=== PATIENT | male | born 1965 | race Caucasian/White ===

== ENCOUNTER 2024-06-30 18:00 | Inpatient (IN) | payer OTHER, SELFPAY ==
[2024-06-30 17:22] VITALS: BP 136/73; PULSE 103; RESP 22; TEMP 37.4; O2SAT 94; BMI 18.1
--- NOTE | 2024-06-30 18:33 | NURSING ---
Attempted to call spouse to ask admission questions, no answer.
--- NOTE | 2024-06-30 18:44 | HP.PCM_ITS ---
HPI - General General Date of Admission: 06/30/24 Date of Service: 06/30/24 Chief Complaint: Here for rehabilitation. HPI Narrative ROSA ELENA GARG, is a 59 Male who presents with followin06/13/2024 Admit [facility]. Fall, low back pain, woke up on bathroom floor. Hit head, neck, felt weak, usually walks with walker. Depressed, weak, eating less. Sodium 127, AST 200, ALT 81. CT head chronic small vessel ischemia, CXR negative. EKG sinus tachycardia. Tongue cancer 2012, history of tracheostomy, history of PEG, both removed. 06/17/2024 Consult Psychiatry, Sertraline 50mg daily for depression. IV antibiotics, BUMBOATER, modified diet, for right lower lobe aspiration pneumonia. PT/OT SNF. Patient declined PEG, DNRCCA, No intubation. 06/26/2024 Transfuse PRBC for anemia, Eliquis held. Patient/ declined further testing, requested SNF to get stronger. 06/27/2024 Syncope, during BM. PEG, Linezolid, nebs, NPO, aspiration pneumonia. Elevated LFT's, resolved. No surgery for cholelithiasis. 06/30/2024 General surgery replaced PEG tube. 06/30/2024 Admit to TCU with debility, here for rehabilitation, strengthening, prior to discharge home with . [facility] Medical History (Updated 06/30/24 @ 19:[address] Bony Marie MD) DDD (degenerative disc disease), thoracic Squamous cell carcinoma of tongue Pulmonary embolism Megaloblastic anemia DDD (degenerative disc disease), lumbar DVT (deep venous thrombosis) HTN (hypertension) History of smoking Cervical spinal stenosis Home Medications ?Medication ?Instructions ?Recorded ?Last Taken ?Type ergocalciferol (vitamin D2) 1,250 1,250 mcg feeding tube QWEEK 06/30/24 06/30/24 History mcg (50,000 unit) capsule supplement ferrous sulfate 300 mg (60 mg 300 mg feeding tube DAILY 06/30/24 06/30/24 History iron)/5 mL oral liquid supplement fluticasone propionate 50 2 spray intranasal DAILY PRN nasal 06/30/24 06/29/24 History mcg/actuation nasal congestion spray,suspension ipratropium 0.5 mg-albuterol 3 mg 3 ml inhalation TID PRN shortness 10/03/24 10/03/24 History (2.5 mg base)/3 mL nebulization of breath or wheezing soln miconazole nitrate 2 % topical 1 applic topical DAILY skin 06/30/24 06/29/24 History powder protection oxycodone 5 mg tablet 5 mg feeding tube Q6H PRN pain 06/30/24 06/29/24 History (scale score 7-10) phenol 1.4 % mucosal aerosol spray 1 spray mucous membrane Q2H PRN 06/30/24 Unknown History (Throat [place]) sore throat polyethylene glycol 3350 17 17 g PO DAILY PRN constipation 06/30/24 Unknown History gram/dose oral powder (Miralax) potassium chloride 20 mEq 20 meq PO BID supplement 06/30/24 06/30/24 History tablet,extended release(part/cryst) (Klor-Con M) pregabalin 75 mg capsule 75 mg feeding tube BID nerve pain 06/30/24 Unknown History Allergy/AdvReac Type Severity Reaction Status Date / Time No Known Allergies Allergy Verified 06/30/24 17:55 Family History (Updated 06/30/24 @ 18:[address] Bony Marie MD) Mother Hypertension Father CAD (coronary artery disease) Hypertension Parkinson disease Brother Hypertension Surgical History (Updated 06/30/24 @ 18:[address] Bony Marie MD) [place] teeth extracted History of glossectomy S/P percutaneous endoscopic gastrostomy (PEG) tube placement History of tracheostomy Social History (Updated 06/30/24 @ 18:[address] Bony Marie MD) household members: spouse Smoking Status: Former smoker alcohol intake: never substance use type: does not use ROS Constitutional Constitutional: Reports weakness; Denies chills, fever(s) or weight gain ENT HEENT: Denies headache(s), nasal congestion or nasal discharge Cardiovascular Cardiovascular: Denies chest pain or palpitations Respiratory/Chest Respiratory/Chest: Denies cough, excessive phlegm production or shortness of breath with exertion Gastrointestinal Gastrointestinal: Denies abdominal pain, nausea or vomiting Genitourinary Genitourinary: Denies dysuria Musculoskeletal Musculoskeletal: Denies joint pain or joint swelling Integumentary Integumentary: Denies rash or wounds Neurologic Neurologic: Denies focal weakness, numbness or tingling Psychiatric Psychiatric: Denies anxiety, auditory hallucinations, depression, homicidal ideation or suicidal ideation Vital Signs Vital Signs Vital Signs: 06/30/24 17:22 Temperature 99.3 F H Temperature Source Temporal Pulse Rate 103 H Respiratory Rate 22 H Blood Pressure 136/73 H Blood Pressure Mean 94 Blood Pressure Source Monitor Blood Pressure Position Semi-Fowlers Blood Pressure Location Right Arm Pulse Ox 94 Oxygen Delivery Method Nasal Cannula Oxygen Flow Rate (L/min) 2 Weight Weight: 60.555 kg Body Mass Index (BMI) 18.1 Physical Exam Const alert General Appearance: cooperative HEENT normocephalic Eyes PERRL and EOMs intact bilaterally Neck supple, no JVD and no carotid bruits Resp normal respiratory effort, normal air movement and clear to auscultation bilaterally Cardio regular rate and regular rhythm GI normal to inspection, nondistended, normoactive bowel sounds, non-tender and non-distended GI Narrative: PEG present. Extremity normal capillary refill General Extremity: Negative for edema Skin no rashes or lesions noted General Skin Exam: no breakdown Psych affect normal Appearance: appropriate Assessment & Plan Assessment/Plan (1) Debility: (2) Failure to thrive: (3) Hyponatremia: (4) Elevated liver function tests: (5) Cholelithiasis: (6) Dysphagia: (7) Aspiration pneumonia: (8) Depression: (9) Essential (primary) hypertension: (10) DVT (deep venous thrombosis): (11) Pulmonary embolism: (12) Malnutrition: (13) History of tongue cancer: PLAN: Plan 59 year old male with below past medical history hospitalized for weakness, failure to thrive, complicated by hyponatremia, depression, aspiration pneumonia, dysphagia requiring peg, admitted to TCU with debility, here for rehabilitation, strengthening, prior to discharge home with . * Debility - PT/OT. * Dysphagia - ST. * Pain - Oxycodone 5mg q6 prn. * Bowel - Miralaax 17gm daily prn. * Adult immunization - Administer pneumonia vaccine, covid vaccine, flu vaccine as appropriate. * DVT prophylaxis - Lovenox 30mg sc daily. * Vitamin D deficiency - D 1.25mg qweek. * Iron deficiency anemia - Ferrous sulfate 300mg daily. * Allergic rhinitis - Flonase 2 sprays nasal daily prn. * Shortness of breath - Duoneb 3ml tid prn. * Tinea Corporis - Nystatin powder topical bid. * Sore throat - Chloraseptic 1 spray q2h prn. * Nutrition - Pivot 1.5 50mL/hour. * Hypokalemia - KCL 20meq bid. * Neuropathy - Lyrica 75mg bid.
[2024-06-30] MEDS: Pivot 1.5 Cal 1,000 ML 50 ML GT (20:23)
[2024-06-30] MEDS: Potassium Chloride Oral Soln 20 MEQ/15 ML UDC GT (20:24)
[2024-06-30 21:15] VITALS: PULSE 107; RESP 43; O2SAT 94
--- NOTE | 2024-06-30 21:15 | NURSING ---
Spouse/patient rep (Teena) at bedside, patient unable to answer admission questions or sign admission paper work due to cognition. Spouse Teena agrees to sign paperwork and answer admission questions. Spouse reports patient confusion is not new. Patient is alert to self. Patient speech unclear, does engage in conversation at times. Spouse refuses patient lyrica, states wants medication discontinues due causes patient to be sleepy, patient states I don't want it. Spouse reports patient required new peg placement recently due to accidental removal during turn and reposition at prior hospital. Spouse states she does not want patient labs to be drawn and wants no further imaging taken. Attempts to educate on purpose of labs and imaging ineffective despite multiple attempts, spouse notified that Dr. Marie will be notified of her request. Spouse requests to spend the night with patient. Spouse reports patient was treated for aspiration pneumonia at [facility]. Patient repositioned in bed x2 staff assist to promote comfort. No distress observed or reported. Call light in reach.
--- NOTE | 2024-06-30 21:32 | NURSING ---
Addendum entered by Yousif Mendez 06/30/24 21:43: notified of spouse declines for morphine at this time. Addendum entered by Yousif Mendez 06/30/24 21:42: Spouse notified per that could occur related to respiratory status. Spouse notified of new order for steroid and Bipap, spouse agreeable. Educated on morphine, spouse says no morphine at this time. Spouse verbalizes understanding of risk for if no further labs/imaging, spouse (tobi) verbalizes understanding. Original Note: RT notifies this nurse or resp rate 40/min, [id number], crackles. contacted, notied of spouse request for no labs or imaging and notified of respiratory status/RT concern. voices aware of spouse preferences for now labs or imaging. New order received for Bipap, and start medrol dosepack via peg first dose now, notify spouse of possibility of if respiratory status does not improve and ask spouse if ok for morphine due to respiratory status. orders repeated back to
[2024-06-30 21:45] VITALS: PULSE 107; RESP 12; RESP 43; O2SAT 94
--- NOTE | 2024-06-30 21:59 | NURSING ---
RT initiated BIPAP
[2024-06-30] MEDS: MethylPREDNISolone DosePak 4 MG BOX GT (22:15)
--- NOTE | 2024-06-30 22:25 | NURSING ---
remains at bedside, patient tolerating Bipap at this time. During conversation spouse voices speaking 2 languages, kinyarwanda being second language. Spouse educated of solid waste collection worker service provided by hospital if ever needed/wanted, per spouse solid waste collection worker not necessary and verbalizes understanding that service can be provided upon request. Patient needs assessed, medrol administered per order via peg. Respirations 35/min, RT increased O2 to 4L/min. No distess observed or reported. Call light in reach. Spouse remains at bedside.
[2024-06-30 22:30] VITALS: PULSE 96; RESP 35; O2SAT 96
[2024-06-30 23:12] VITALS: PULSE 102; RESP 12; RESP 40; O2SAT 96
--- NOTE | 2024-06-30 23:52 | NURSING ---
Written communication left for Dr. Marie requesting Lyrica be discontinued per spouse request
--- NOTE | 2024-07-01 00:05 | NURSING ---
Education provided on flu/pneumococcal vaccine, per spouse no vaccines to be administered
--- NOTE | 2024-07-01 00:25 | NURSING ---
Spouse requests Sister in law Genet Gimenez and Daughter Milka Gimenez be added to contact list for updates as they request. No phone numbers at this time. Registration notified of spouse request
--- NOTE | 2024-07-01 00:30 | NURSING ---
Patient continues to tolerate Bipap, restless at times, at bedside talking to patient, denies requests. Call light in reach.
--- NOTE | 2024-07-01 00:34 | NURSING ---
Lab notified of spouse declining labs as ordered in the AM.
[2024-07-01 02:00] VITALS: PULSE 101; RESP 34; O2SAT 97
[2024-07-01 02:52] VITALS: O2SAT 93
--- NOTE | 2024-07-01 06:00 | NURSING ---
spouse requests ATB via peg, does not want IV medications. Written communication left for Dr. Marie regarding spouse request
[2024-07-01] MEDS: MethylPREDNISolone DosePak 4 MG BOX GT ×4 (08:11→20:07)
[2024-07-01] MEDS: Potassium Chloride Oral Soln 20 MEQ/15 ML UDC GT ×2 (08:11→20:07)
[2024-07-01] MEDS: Ferrous Sulfate 300 MG/5 ML UDC GT (08:15)
[2024-07-01] MEDS: oxyCODONE 5 MG Tablet GT (08:15)
[2024-07-01] MEDS: guaiFENesin 10 ML UDC (200MG/10ML) GT (08:19)
[2024-07-01] MEDS: Menthol/Lanolin/Calamine/Znox 113 GM Tube 1 APPLIC TOPICAL ×2 (08:31→20:08)
[2024-07-01] MEDS: Nystatin Powder 15gm Bottle 1 APPLIC TOPICAL (08:33)
--- NOTE | 2024-07-01 09:24 | CASEMGMT ---
Social Work SW left VM with to discuss plans for pt and answer questions. Richelle Wall, ELEVATOR SERVICEMAN TEMPORARY DATA ENTRY CLERK
--- NOTE | 2024-07-01 09:42 | PHA.CONS_ITS ---
Documented by User: Ebenezer Kline 07/01/24 10:00 TCU RX Drug Regimen Review Subjective/Objective Subjective/Objective: Subjective: TCU admission note. 59 year old male with below past medical history hospitalized for weakness, failure to thrive, complicated by hyponatremia, depression, aspiration pneumonia, dysphagia requiring peg, admitted to TCU with debility, here for rehabilitation, strengthening, prior to discharge home with . Objective: Allergies No Known Allergies Allergy (Verified 06/30/24 17:55) Current Medications Generic Name Dose Route Start Last Admin Trade Name Freq PRN Reason Stop Dose Admin Albuterol/Ipratropium 3 ml 06/30/24 17:50 Ipratropium/Albuterol Sulfate 3 Ml Ampul.Neb INHALATION TID PRN shortness of breath or wheezing Calamine/Phenol 1 applic 07/01/24 10:00 07/01/24 08:31 Menthol/Lanolin/Calamine/Znox 113 Gm Tube TOPICAL 1 applic BID PRIYA Administration Protocol Ergocalciferol 1.25 mg 06/30/24 18:00 Ergocalciferol 1.25 Mg (50, 000 Unit) Capsule PO QWEEK PRIYA Ferrous Sulfate 300 mg 07/01/24 10:00 07/01/24 08:15 Ferrous Sulfate 300 Mg/5 Ml Udc GT 300 mg DAILY PRIYA Administration Fluticasone Propionate 2 spray 06/30/24 17:50 Fluticasone 0.05% 1 [place] Nasal.Sry NASAL DAILY PRN nasal congestion Guaifenesin 10 ml 07/01/24 07:37 07/01/24 08:19 Guaifenesin 10 Ml Udc (200mg/10ml) GT 10 ml Q4H PRN PRN Administration COUGH/CONGESTION Lactose 1,000 mls @ 50 mls/hr 06/30/24 18:15 06/30/24 20:23 Pivot 1.5 Mark GT 50 mls/hr .Q20H PRIYA Administration Levofloxacin 750 mg 07/03/24 06:00 Levofloxacin 750 Mg Tablet GT 07/10/24 06:01 Q48@0600 PRIYA Levofloxacin 750 mg 07/01/24 10:00 Levofloxacin 750 Mg Tablet GT 07/01/24 10:01 X1 ONE Methylprednisolone 4 mg 06/30/24 22:00 07/01/24 08:11 Methylprednisolone Dosepak 4 Mg Box GT 07/05/24 08:59 4 mg 0800,1200,1700 PRIYA Administration Taper Nystatin 1 applic 07/01/24 10:00 07/01/24 08:33 Nystatin Powder 15gm Bottle TOPICAL 1 applic DAILY PRIYA Administration Oxycodone HCl 5 mg 06/30/24 17:50 07/01/24 08:15 Oxycodone 5 Mg Tablet GT 5 mg Q6H PRN Administration pain (scale score 7-10) Phenol/Menthol 1 spray 06/30/24 17:50 Phenol/Sodium Phenolate 180ml MUCOUS MEM Q2H PRN sore throat Polyethylene Glycol 17 gm 06/30/24 18:06 Polyethylene Glycol 3350 17 Gm Packet PO DAILY PRN constipation Potassium Chloride 20 meq 06/30/24 22:00 07/01/24 08:11 Potassium Chloride Oral Soln 20 Meq/15 Ml Udc GT 20 meq BID PRIYA Administration Tuberculin PPD 0.1 ml 07/01/24 10:00 Tuberculin,Purif.Prot.Deriv. 50 Tu/Ml Vial ID 07/01/24 10:01 X1 ONE Tuberculin PPD 0.1 ml 07/08/24 10:00 Tuberculin,Purif.Prot.Deriv. 50 Tu/Ml Vial ID 07/08/24 10:01 X1 ONE Problem List History of tongue cancer (Acute) Malnutrition (Acute) Pulmonary embolism (Acute) DVT (deep venous thrombosis) (Acute) Essential (primary) hypertension (Acute) Depression (Acute) Aspiration pneumonia (Acute) Dysphagia (Acute) Cholelithiasis (Acute) Elevated liver function tests (Acute) Hyponatremia (Acute) Failure to thrive (Acute) Debility (Acute) Vital Signs Temp Pulse Resp BP Pulse Ox O2 Del Method O2 Flow Rate 99.3 F H 101 H 34 H 136/73 H 93 Nasal Cannula 4 06/30/24 17:22 07/01/24 02:00 07/01/24 02:00 06/30/24 17:22 07/01/24 02:52 07/01/24 02:52 07/01/24 02:52 FiO2 30 06/30/24 23:12 Oxygen Flow Rate (L/min) 4 Oxygen Delivery Method Nasal Cannula Weight: 60.555 kg Body Mass Index (BMI) 18.1 Assessment/Plan: 1. Pain: oxycodone 5 mg PO Q6H PRN pain (7-10). The patient has required 1 PRN dose of oxycodone so far this admission. Please continue to monitor for PRN medication administration, pain levels, drowsiness/dizziness, syncope/ataxia/falls and respiratory depression. The patient currently has no pain medication ordered for pain levels 1-6. Please consider ordering acetaminophen 1000 mg PO Q6H PRN pain 1-6. 2. Bowel: polyethylene glycol 17 grams PO daily PRN constipation. The patient has not required any PRN doses of polyethylene glycol so far this admission. Please continue to monitor for bowel movements, for PRN medication administration, constipation and diarrhea. 3. Pneumonia: levofloxacin 750 mg Q48H, methylprednisolone 4 mg dose taper. Please continue to monitor for s/s of pneumonia/infection including cough, shortness of breath (recent respirator rate = 34 breaths/min), WBC count (no recent WBC count), renal function (no recent renal function d/t pt refusing labs), blood pressures (recent BP = 136/73 mmHg), and for photosensitivity. 4. Vitamin D deficiency: ergocalciferol 1.25 mg PO weekly. Please continue to monitor for s/s of vitamin D deficiency as well as vitamin D levels (no recent vitamin D level documented). Please consider obtaining a vitamin D level if clinically indicated. 5. Shortness of breath: ipratropium/albuterol 3 mL inhalation TID PRN shortness of breath. The patient has required 1 PRN dose of Duoneb so far this admission. Please continue to monitor for shortness of breath and PRN medication administration. 6. Allergic rhinitis: fluticasone 0.05% nasal spray 2 sprays in each nostril daily PRN allergy symptoms. The patient has not required any PRN doses of fluticasone so far this admission. Please continue to monitor for PRN medication administration and for allergy symptoms. 7. Sore throat: chloraseptic 1 spray in throat Q2H PRN sore throat. The patient has not required any PRN chloraseptic administrations so far this admission. Please continue to monitor for PRN medication usage and sore throat. 8. Hypokalemia: potassium chloride 20 mEq PO BID. Please continue to monitor potassium levels (no recent potassium levels documented) as well as for GI distress with potassium administration. 9. Cough: guaifenesin 10 mL PO Q4H PRN cough. The patient has required 1 PRN dose of guaifenesin so far this admission. Please continue to monitor for cough and PRN medication administration. 10. Skin irritation/tinea corporis: calmoseptine 1 application topically BID, nystatin powder 1 application topically daily. Please continue to monitor for skin irritation and for resolution of tinea corporis. 11. Nutrition: Pivot 1.5 at 50 mL/hr. Please continue to monitor overall nutritional status. 12. Iron deficiency anemia: ferrous sulfate 300 mg PO daily. Please continue to monitor for anemia (no recent lab values) and for dark stools with ferrous sulfate administration. Assessment/Plan for indications treated with psychotropic medications: NA Medical chart and medication regimen reviewed. The following medication irregularities or issues were identified: 1. Pain: oxycodone 5 mg PO Q6H PRN pain (7-10). The patient currently has no pain medication ordered for pain levels 1-6. Please consider ordering acetaminophen 1000 mg PO Q6H PRN pain 1-6. 2. Vitamin D deficiency: ergocalciferol 1.25 mg PO weekly. Please consider obtaining a vitamin D level if clinically indicated. Date Date of Note:: 07/01/24 Documented by User: Dr. Bony Marie MD 07/01/24 13:46 TCU RX Drug Regimen Review Provider Comments Provider responsibility Provider Comments to Recommendations by Pharmacy: Agree
[2024-07-01 10:00] VITALS: RESP 20
--- NOTE | 2024-07-01 10:35 | WOUNDNOTE ---
wound photo: left heel
[2024-07-01] MEDS: levoFLOXacin 750 MG Tablet GT (11:15)
[2024-07-01] MEDS: Tuberculin,Purif.prot.deriv. 50 TU/ML Vial 0.1 ML ID (11:22)
--- NOTE | 2024-07-01 11:29 | NURSING ---
Director Public Note; Activity Asset: Leeann Gamez is independent in his choice of daily activities. He is unable to verbalizes his wishes however can nod with yes or no to questions. was able to help with activity questions and likes and dislikes. has language barrier but if you talk slow she understands. He will watch tv, read and welcomes visits from the lithographic proofer apprentice and therapy dog even though he can not talk with them. will visit daily and bring him items he may need. Staff will continue weekly visits and offer room activities. Staff will respect his right to say no.
--- NOTE | 2024-07-01 11:54 | NURSING ---
TUBE FEED STOPPED AT 0830 FOR 2 HOURS DUE TO PT WILL RECEIVE LEVAQUIN AFTER THAT AND THEN NO TUBE FEED FOR ANOTHER 1-2 HOURS. PT HAD 40ML RESIDUAL. PT AND AGREED TO OXY, AND TB TEST. PT TOLERATED WELL. RN AWARE WILL CONTINUE TO MONITOR.
[2024-07-01 12:08] LABS: Bedside Glucose 126 mg/dL (74-106)
--- NOTE | 2024-07-01 12:56 | NURSING ---
MEDS GIVEN THATS SCHEDULED AND TUBE FEED STARTED BACK UP. WILL CONTINUE TO MONITOR.
[2024-07-01 14:40] VITALS: BP 104/65; PULSE 98; RESP 16; O2SAT 91
--- NOTE | 2024-07-01 15:47 | CPS ---
took chest vest into patients room and immediately he asked me what the device was and I said that the doctor ordered a vest treatment for you and he then told me no. I asked him if he is refusing and he said yes. I asked one more time are you sure? he said yes. Vest device was taken from his room, nursing made aware
[2024-07-01] MEDS: Jevity 1.5 1,000 ML 65 ML GT (17:01)
[2024-07-01 17:10] LABS: Bedside Glucose 131 mg/dL (74-106)
--- NOTE | 2024-07-01 20:08 | NURSING ---
AT 1700 PT HAD 10 ML OF RESIDUAL. NEW ORDER TO STOP PIVOT AND START JEVITY 65ML/HR AND FLUSH 160 EVERY 4 HOURS. DRESSING CHANGED TO PEG SITE. NO COMPLAINTS FROM PT AT THIS TIME. PT CONTINUES TO BE ON 4L OF OXYGEN. HEEL BOOTS ON. UPDATED PT AND ON NEW ORDER. BOTH STATED THEY UNDER STOOD.
[2024-07-01 21:45] LABS: Bedside Glucose 124 mg/dL (74-106)
--- NOTE | 2024-07-02 03:20 | NURSING ---
Patient and spouse still refusing lab orders and request they be cancelled. Lab notified.
[2024-07-02 05:40] VITALS: BMI 18.6
[2024-07-02 06:36] LABS: Bedside Glucose 122 mg/dL (74-106)
[2024-07-02] MEDS: Jevity 1.5 1,000 ML 65 ML GT (10:25)
[2024-07-02] MEDS: MethylPREDNISolone DosePak 4 MG BOX GT ×4 (10:26→22:36)
[2024-07-02] MEDS: Ferrous Sulfate 300 MG/5 ML UDC GT (10:26)
[2024-07-02] MEDS: Cholecalciferol (VIT D3) 25 MCG TABLET (1,000 UNITS) GT (10:27)
[2024-07-02] MEDS: Potassium Chloride Oral Soln 20 MEQ/15 ML UDC GT ×2 (10:27→22:37)
[2024-07-02] MEDS: Menthol/Lanolin/Calamine/Znox 113 GM Tube 1 APPLIC TOPICAL ×2 (10:30→22:37)
[2024-07-02] MEDS: Nystatin Powder 15gm Bottle 1 APPLIC TOPICAL (10:30)
[2024-07-02 16:00] VITALS: BP 118/68; PULSE 97; RESP 16; TEMP 36.1; O2SAT 94
[2024-07-02 17:15] LABS: Bedside Glucose 118 mg/dL (74-106)
[2024-07-02 21:15] LABS: Bedside Glucose 118 mg/dL (74-106)
[2024-07-03 00:43] VITALS: PULSE 81; RESP 12; RESP 21; O2SAT 100
[2024-07-03] MEDS: Jevity 1.5 1,000 ML 65 ML GT (03:02)
--- NOTE | 2024-07-03 03:24 | NURSING ---
BiPAP unit alarms while spouse was attempting to reposition BiPAP mask. BiPAP mask removed per this nurse d/t resident restlessness and request to remove mask. Unit turned off. Continuous oximetry remain in use to monitor levels. Will continue to monitor.
--- NOTE | 2024-07-03 04:14 | NURSING ---
Tube feed disconnected per order. Spouse remains at bedside.
[2024-07-03 04:16] VITALS: O2SAT 96
[2024-07-03 05:10] VITALS: BMI 18.4
[2024-07-03] MEDS: levoFLOXacin 750 MG Tablet GT (05:41)
--- NOTE | 2024-07-03 05:56 | NURSING ---
Dressing change to PEG tube site completed. Clenased w/ soap and water, rinsed, pat dry, and two split 4x4s applied. Secured w/ two pieces of paper tape. No redness, warmth, or swelling to three buttons or insertion site. Scant amount of dried blood noted when site cleaned. Will continue to monitor. PEG tube w/ 0 ml residual.
[2024-07-03 06:37] LABS: Bedside Glucose 106 mg/dL (74-106)
[2024-07-03 06:57] LABS: Absolute Lymphocyte Count 0.49 X10^3/uL (0.83-4.51); Absolute Neutrophil Count 3.6 X10^3/uL (2.0-7.7); Basophil# 0.02 X10^3/uL; Basophil% 0.4 % (0-1); Eosinophil# 0.01 X10^3/uL; Eosinophils% 0.2 % (0-5); Hematocrit 23.4 % (40-54); Hemoglobin 7.5 g/dL (13.0-16.5); Lymphocyte # 0.49 X10^3/ul (0.83-4.51); Lymphocyte % 10.3 % (19-41); Mean Corp Hgb Conc 32.1 g/dL (32-36); Mean Corpuscular Hgb 33.3 pg (27.0-32.0); Mean Platelet Vol. 9.8 fl (6.2-12.0); Monocyte# 0.62 X10^3/uL; Monocyte% 13.1 % (0-10); NRBC Flagged by Analyzer 0.4 % (0-5); Neutrophil # 3.58 X10^3/uL (2.7-7.7); Neutrophil % 75.6 % (47-70); POSITIVE DIFFERENTIAL YES; Platelet Count 379 K/mm3 (150-450); RBC Distribution Width CV 15.6 % (11.6-14.6); RBC Distribution Width SD 59.6 fl (35.1-43.9); Red Blood Count 2.25 M/mm3 (4.6-6.2); White Blood Count 4.7 K/mm3 (4.4-11.0)
[2024-07-03 07:12] LABS: Differential Indicated SCAN CRITERIA MET
[2024-07-03] MEDS: MethylPREDNISolone DosePak 4 MG BOX GT ×3 (09:43→23:33)
[2024-07-03] MEDS: Cholecalciferol (VIT D3) 25 MCG TABLET (1,000 UNITS) GT (09:43)
[2024-07-03] MEDS: Nystatin Powder 15gm Bottle 1 APPLIC TOPICAL (09:44)
[2024-07-03] MEDS: Ferrous Sulfate 300 MG/5 ML UDC GT (09:44)
[2024-07-03] MEDS: Menthol/Lanolin/Calamine/Znox 113 GM Tube 1 APPLIC TOPICAL ×2 (09:44→23:33)
[2024-07-03] MEDS: Potassium Chloride Oral Soln 20 MEQ/15 ML UDC GT ×2 (09:44→23:33)
[2024-07-03 10:00] VITALS: PULSE 88; RESP 21
[2024-07-03 11:58] LABS: Bedside Glucose 104 mg/dL (74-106)
[2024-07-03 15:55] VITALS: BP 104/70; PULSE 82; RESP 19; TEMP 36.6; O2SAT 98
[2024-07-03 16:28] LABS: Bedside Glucose 107 mg/dL (74-106)
[2024-07-03 21:30] LABS: Bedside Glucose 113 mg/dL (74-106)
--- NOTE | 2024-07-03 23:45 | NURSING ---
Resident declines to have BiPAP applied this hs.
[2024-07-04] MEDS: Jevity 1.5 1,000 ML 65 ML GT (02:06)
[2024-07-04 03:10] VITALS: O2SAT 97
--- NOTE | 2024-07-04 04:31 | NURSING ---
Tube feed disconnected per provider order.
[2024-07-04 05:28] VITALS: BMI 18.4
[2024-07-04 06:13] LABS: Bedside Glucose 105 mg/dL (74-106)
[2024-07-04] MEDS: Ferrous Sulfate 300 MG/5 ML UDC GT (08:09)
[2024-07-04] MEDS: Potassium Chloride Oral Soln 20 MEQ/15 ML UDC GT ×2 (08:09→19:54)
[2024-07-04] MEDS: Cholecalciferol (VIT D3) 25 MCG TABLET (1,000 UNITS) GT (08:09)
[2024-07-04] MEDS: Menthol/Lanolin/Calamine/Znox 113 GM Tube 1 APPLIC TOPICAL ×2 (08:09→19:57)
[2024-07-04] MEDS: MethylPREDNISolone DosePak 4 MG BOX GT ×2 (08:09→19:54)
[2024-07-04] MEDS: Nystatin Powder 15gm Bottle 1 APPLIC TOPICAL (08:10)
[2024-07-04 11:12] LABS: Bedside Glucose 128 mg/dL (74-106)
[2024-07-04 14:46] VITALS: BP 110/69; PULSE 84; RESP 16; TEMP 36.2; O2SAT 98
--- NOTE | 2024-07-04 15:10 | WOUNDNOTE ---
Left heel dressing was changed by welder 2nd shift RN this morning.
--- NOTE | 2024-07-04 16:10 | NURSING ---
CALLED AND LEFT MESSAGE FOR TO CALL BACK FOR UPDATES AND QUESTIONS. RN AWARE
--- NOTE | 2024-07-04 16:28 | CASEMGMT ---
Addendum entered by Richelle Wall 07/04/24 16:39: SW did receive notification from insurance LCD 07/06, DC 07/07. Will attempt following business day on planning for DC with and pt. Original Note: Social Work SW attempted to phone the again, however, it is not the correct phone number. SW cross-checked phone number with insurance and palliative, and it is the same phone number. SW attempted to speak with pt at bedside. Pt was having difficulty conversing with this worker and was disoriented. However, did state should be visiting today. SW requested nursing to speak with during visit to get updated contact information as there is a concern for pt getting a DC date from insurance. Will continue to follow. VIC BuchananW
--- NOTE | 2024-07-04 16:58 | NURSING ---
8AM PEG PLACEMENT VERIFIED, 0 RESIDUAL. MEDS WITH FLUSH GIVEN THREW PEG TUBE GIVEN TOTAL 90CC. JEVITY HOOKED BACK UP AND RUNNING 65 ML/HR,WITH 160 FLUSH EVERY 4 HRS. PT TOLERATED WELL. WILL CONTINUE TO MONITOR.
[2024-07-04 17:31] LABS: Bedside Glucose 104 mg/dL (74-106)
[2024-07-04] MEDS: Acetaminophen 650 MG/20 ML UDC GT (19:53)
[2024-07-04 21:46] LABS: Bedside Glucose 109 mg/dL (74-106)
[2024-07-05] MEDS: Acetaminophen 650 MG/20 ML UDC GT ×2 (00:28→17:42)
[2024-07-05] MEDS: Jevity 1.5 1,000 ML 65 ML GT (00:29)
--- NOTE | 2024-07-05 04:45 | NURSING ---
Spoke w/ Jonna in respiratory that BiPAP and continuous pulse ox can be picked up as orders have been dc'ed.
[2024-07-05 06:09] VITALS: BMI 17.6
[2024-07-05] MEDS: levoFLOXacin 750 MG Tablet GT (06:09)
[2024-07-05 06:25] LABS: Bedside Glucose 96 mg/dL (74-106)
[2024-07-05] MEDS: MethylPREDNISolone DosePak 4 MG BOX GT (07:31)
[2024-07-05] MEDS: Ferrous Sulfate 300 MG/5 ML UDC GT (07:31)
[2024-07-05] MEDS: Potassium Chloride Oral Soln 20 MEQ/15 ML UDC GT ×2 (07:31→20:16)
[2024-07-05] MEDS: Cholecalciferol (VIT D3) 25 MCG TABLET (1,000 UNITS) GT (07:31)
[2024-07-05] MEDS: Nystatin Powder 15gm Bottle 1 APPLIC TOPICAL (07:32)
[2024-07-05] MEDS: Menthol/Lanolin/Calamine/Znox 113 GM Tube 1 APPLIC TOPICAL ×2 (07:32→20:16)
--- NOTE | 2024-07-05 09:13 | CASEMGMT ---
Addendum entered by Richelle Wall 07/05/24 10:01: phoned this worker and provided accurate phone number ([phone]) - SW updated in chart. SW educated to pt's need for blood transfusion. agreed to blood. SW updated nursing. SW educated to insurance LCD 07/06. stated she is coming to visit pt and requested to speak with this worker at that time. SW agreed and will wait for 's arrival. Original Note: Social Work SW has searched on the internet any phone number that could be associated with the pt's , TESS and dtr. No success. SW spoke with [employer], providing this worker's direct phone number, for to contact, once PD makes contact with the at her residence. Will await outcome. Richelle Wall, VIC RIVERAW
--- NOTE | 2024-07-05 09:31 | NURSING ---
Spouses phone number has been corrected in patients chart.
--- NOTE | 2024-07-05 09:48 | NURSING ---
Updated that approved blood transfusion. Updated Dr. Marie, order for 2 units blood with 20mg lasix b/t units. Orders entered.
--- NOTE | 2024-07-05 10:30 | NURSING ---
CONSENT FOR BLOOD TRANSFUSION SIGNED BY R' AT THIS TIME. ORDER AND CONSENT FAXED TO OUTPT INFUSION. LUMA WITH CHANDANA. INFUSION SCHEDULED FOR 07/06 AT 0800.
--- NOTE | 2024-07-05 11:19 | CASEMGMT ---
Addendum entered by Richelle Wall 07/05/24 14:09: NELLY received call from Genet PULIDO, to inquire about conversation with and pt, as called TESS for assistance. SW explained the below conversation, specifically clarifying the appeal process, as thought she was calling the insurance company tomorrow. TESS confirmed [facility] is FOC as pt's mother is currently a resident, and they know she gets good care. SW explained this worker placed the referral and they are waiting on official acceptance from DON. TESS requested to meet with this worker tomorrow at 1600 with and pt. SW agreed and will contact prior if insurance decision is given. TESS appreciative of assistance. SW will continue to follow. Original Note: Social Work at bedside. SW introduced self and role. Pt awake and participated in conversation. SW explained the insurance update is 07/06 and indicated issuing LCD 07/06, DC 07/07. Educated pt is a x2 SPT and merry lift for staff. In addition, pt has medical needs, and IDT is not recommending pt return home at this time. Educated if pt/ elects pt return home, pt will need a merry lift and to hire another person to assist or hire two aides. IDT is recommending a SNF to ensure pt receives the care he needs. SW educated to OOP cost and INN vs OON SNFs. Explored pt's finances briefly and pt is over resources to qualify for SANY[facility] and would have access to funds to pay OOP. explains pt has made improvements since hospitalization and would like pt to remain in TCU longer/until he can return home at a one assist. SW acknowledged pt/'s goal, however, explained insurance is ultimately the one to make that decision. Explained there are appeal rights, which expressed interest in appealing. SW educated once insurance issues the official DC date, this worker will review the appeal rights in detail and can call for an appeal. SW [facility] needed to replenish savings account to pay for cost of SNF. SW answered 's questions and explained information in several ways to ensure 's understanding. repeated back information to pt, which showed this worker the understanding. Pt and concluded pt would need a SNF at [place], and requests referral to [facility], as pt's mother was there prior, and [facility] referred there prior to TCU, and they accepted. SW agreed to place referral and request continued stay with insurance, and will keep updated. SW also obtained Genet PULIDO, phone number. Updated in chart. Pt's dtr, Milka, lives in [place] and declined providing her contact information. requested to speak with this worker outside of pt's room. asked if pt is dying. SW deferred to Dr to provide prognosis and offered for Dr to contact to discuss. agreed. SW provided emotional support to . appreciative of assistance. SW referred to [facility] via [facility]. Left written communication for Dr to speak with . Will continue to follow. VIC BuchananW
[2024-07-05 11:32] LABS: Bedside Glucose 111 mg/dL (74-106)
[2024-07-05 14:44] VITALS: BP 117/66; PULSE 80; RESP 18; TEMP 36.6; O2SAT 96
--- NOTE | 2024-07-05 15:36 | WOUNDNOTE ---
Dressing intact to the left heel. plan to change dressing tomorrow.
[2024-07-05 16:44] LABS: Bedside Glucose 126 mg/dL (74-106)
[2024-07-05 21:28] LABS: Bedside Glucose 104 mg/dL (74-106)
[2024-07-06] VITALS (10 sets, daily range): BP systolic 101–133; BP diastolic 65–72; PULSE 76–78; RESP 16–19; TEMP 36.6–37.1; O2SAT 95–97; BMI 17.2
[2024-07-06] MEDS: Jevity 1.5 1,000 ML 65 ML GT ×2 (00:17→23:16)
[2024-07-06] MEDS: Acetaminophen 650 MG/20 ML UDC GT ×2 (04:10→15:28)
[2024-07-06 06:36] LABS: Bedside Glucose 100 mg/dL (74-106)
[2024-07-06] MEDS: Nystatin Powder 15gm Bottle 1 APPLIC TOPICAL (07:59)
[2024-07-06] MEDS: Menthol/Lanolin/Calamine/Znox 113 GM Tube 1 APPLIC TOPICAL ×2 (07:59→23:05)
[2024-07-06] MEDS: Ferrous Sulfate 300 MG/5 ML UDC GT (08:00)
[2024-07-06] MEDS: Cholecalciferol (VIT D3) 25 MCG TABLET (1,000 UNITS) GT (08:00)
[2024-07-06] MEDS: Potassium Chloride Oral Soln 20 MEQ/15 ML UDC GT ×2 (08:00→23:05)
--- NOTE | 2024-07-06 08:44 | NURSING ---
PEG PLACEMENT VERIFIED,NO RESIDUAL. MEDS GIVEN BY PEG TUBE. 60 FLUSH,30 WITH MEDS. PT TOLERATED WELL. PT THEN TAKEN TO INFUSION FOR 2 UNITS OF BLOOD BY BED AT 0815. JEVITY STARTED BACK UP THERE AT 65ML/HR AND FLUSH 160 EVERY 4HOURS.
[2024-07-06] MEDS: Furosemide 20 MG/2 ML VIAL IV (11:10)
[2024-07-06 11:27] LABS: Bedside Glucose 106 mg/dL (74-106)
--- NOTE | 2024-07-06 13:04 | CASEMGMT ---
Social Work IDT met with pt's in room as pt was still at infusion center, for care plan meeting. Discussed patient's progress in PT/OT/ST/SN. Educated to MMO Commer[employer] insurance with NRD 07/06 and continued stay is not guaranteed with each review. Insurance does not have to provide advanced notice for DC. Provided with written communication on insurance process and copay coverage during stay. At meeting this afternoon with and TESS, ENLLY to educate further to details of appeal process. [facility] can accept pt when ready for DC. acknowledged she spoke with and pt is not dying. SW will continue to follow. Richelle Wall, LEAD SYSTEMS ENGINEER BASKETBALL ASSEMBLER
--- NOTE | 2024-07-06 13:39 | NURSING ---
PT RETURNED TO FLOOR BY BED FROM BLOOD INFUSION AT 1330. KATIANA MELENDEZ/WOUND NURSE IN TO CHANGE PT DRESSING TO HEEL.
--- NOTE | 2024-07-06 14:21 | WOUNDNOTE ---
wound photo: left heel
--- NOTE | 2024-07-06 16:35 | CASEMGMT ---
Social Work NELLY met with pt's and TESS, Genet. spoke with both parties as well to answer questions. Dr offered to pursue medical testing to determine origin of bleeding, but asked what she would do with that information and would she want continued testing. denied and agreed not to pursue further testing. Will wait to see how pt responds to blood transfusion. SW received outcome from insurance - approved with NRD 07/08. SW explained in detail that the insurance is reviewing pt's information from 'update to update', not from admission or prior to admission to current date. Explained when the insurance issues LCD, it is not d/t pt returning to PLOF or ability to DC, but that pt no longer meets skilled criteria and the insurance is not going to continue covering a SNF stay. Educated to the appeals process - reviewer explained the pt/ can appeal, but it can take up to 30 days to provide an outcome. Pt cannot leave the facility during that time, if he wants to wait for that outcome. Pt cannot DC and return if appeal is won. If the appeal is lost, pt would need to pay OOP TCU rate of $660/day. /TESS agreed they would not appeal. kept reiterating please ask to keep him as long as possible. SW assured we continue asking for continued stay and he can stay on TCU as long as insurance approves, or pt wants to pay privately. stated we just need a few more days. SW kindly explained that the pt has been through a lot and is compromised. His recovery is going to take longer than a few days; likely weeks. Explained regardless how long pt remains on TCU, until he is a one person assist and can physically care for him at home, pt will need a SNF. agreed and remains agreeable to [facility]. and TESS appreciative of assistance. SW phoned Mel at [facility]; left VM updating on NRD. SW will continue to follow. Richelle Wall MANAGING DIRECTOR ATLAS SECURITY AGENT
[2024-07-06 17:45] LABS: Bedside Glucose 108 mg/dL (74-106)
[2024-07-06 22:55] LABS: Bedside Glucose 122 mg/dL (74-106)
[2024-07-07] MEDS: guaiFENesin 10 ML UDC (200MG/10ML) GT (04:19)
[2024-07-07] MEDS: oxyCODONE 5 MG Tablet GT (04:20)
[2024-07-07 05:39] VITALS: BMI 17.4
[2024-07-07] MEDS: levoFLOXacin 750 MG Tablet GT (06:27)
[2024-07-07 06:57] LABS: Bedside Glucose 101 mg/dL (74-106)
[2024-07-07] MEDS: Menthol/Lanolin/Calamine/Znox 113 GM Tube 1 APPLIC TOPICAL ×2 (08:14→23:08)
[2024-07-07] MEDS: Ferrous Sulfate 300 MG/5 ML UDC GT (08:15)
[2024-07-07] MEDS: Potassium Chloride Oral Soln 20 MEQ/15 ML UDC GT ×2 (08:15→23:08)
[2024-07-07] MEDS: Cholecalciferol (VIT D3) 25 MCG TABLET (1,000 UNITS) GT (08:16)
[2024-07-07] MEDS: Nystatin Powder 15gm Bottle 1 APPLIC TOPICAL (08:16)
[2024-07-07] MEDS: Acetaminophen 650 MG/20 ML UDC GT ×3 (08:20→23:07)
[2024-07-07 08:29] VITALS: BP 100/67; PULSE 80; TEMP 36.7; O2SAT 96
--- NOTE | 2024-07-07 08:30 | NURSING ---
JEVITY STARTED BACK UP AT 0805 AM AFTER SHUT OFF AT 0400. PER ORDER. START JEVITY AT [id number]. 65 ML/HR AND 160 FLUSH EVERY 4 HRS. 0 RESIDUAL,PLACEMENT VERIFIED, MEDS GIVEN THREW PEG TUBE. PT TOLERATED WELL.
[2024-07-07 09:07] VITALS: PULSE 90; RESP 16; O2SAT 96
[2024-07-07 11:50] LABS: Bedside Glucose 111 mg/dL (74-106)
--- NOTE | 2024-07-07 14:19 | CASEMGMT ---
Social Work BIMS () and PHQ-2 () completed for MDS assessment. Pt was sharp with his cognition and denied any depressive symptoms at this time. Richelle Wall, [employer] FLOOR REFINISHER CAREGIVER SERVICES HOME
[2024-07-07 14:22] VITALS: BP 113/68; PULSE 77; RESP 16; TEMP 36.7; O2SAT 97
[2024-07-07 16:36] LABS: Bedside Glucose 114 mg/dL (74-106)
[2024-07-07 21:36] LABS: Bedside Glucose 114 mg/dL (74-106)
[2024-07-07] MEDS: Jevity 1.5 1,000 ML 65 ML GT (23:15)
[2024-07-07 23:25] VITALS: RESP 16
--- NOTE | 2024-07-08 04:04 | NURSING ---
Jevity paused per order, will be resumed at 0800. 30ml residual.
[2024-07-08 04:07] VITALS: BMI 17.5
[2024-07-08 06:18] LABS: Bedside Glucose 106 mg/dL (74-106)
[2024-07-08 06:19] LABS: Hematocrit 34.1 % (40-54); Hemoglobin 11.1 g/dL (13.0-16.5); Mean Corp Hgb Conc 32.6 g/dL (32-36); Mean Corpuscular Hgb 32.8 pg (27.0-32.0); Mean Corpuscular Volume 100.9 fL (80-94); Mean Platelet Vol. 9.7 fl (6.2-12.0); POSITIVE COUNT YES; POSITIVE MORPHOLOGY YES; Platelet Count 349 K/mm3 (150-450); RBC Distribution Width CV 17.2 % (11.6-14.6); RBC Distribution Width SD 63.5 fl (35.1-43.9); Red Blood Count 3.38 M/mm3 (4.6-6.2); White Blood Count 6.3 K/mm3 (4.4-11.0)
[2024-07-08 06:37] LABS: Differential Indicated MANUAL DIFF
[2024-07-08 06:55] LABS: Anion Gap 8 (5-15); BUN 16 mg/dL (7-18); BUN/Creat Ratio 37.6 RATIO (10-20); Calcium,Total 9.4 mg/dL (8.5-10.1); Chloride 102 mmol/L (98-107); Creatinine, Serum 0.43 mg/dL (0.70-1.30); EST Glomerular Filtration Rate 216 mL/min (>60); Est Glom Filt Rate - Afr Amer 262 mL/min (>60); Estimated Creatinine Clearance 149.77 ml/min; Glucose 96 mg/dL (74-106); Potassium 3.7 mmol/L (3.5-5.1); Sodium Level 134 mmol/L (136-145)
[2024-07-08] MEDS: Menthol/Lanolin/Calamine/Znox 113 GM Tube 1 APPLIC TOPICAL ×2 (08:18→22:15)
[2024-07-08] MEDS: Potassium Chloride Oral Soln 20 MEQ/15 ML UDC GT ×2 (08:18→21:55)
[2024-07-08] MEDS: Nystatin Powder 15gm Bottle 1 APPLIC TOPICAL (08:19)
[2024-07-08 08:20] LABS: Eosinophil 3 % (0-5); Lymphocyte 11 % (19-41); Metamyelocyte 1 % (0-1); Monocyte 3 % (0-10); Myelocyte 5 % (0-0); Neutrophil-Segmented 77 % (47-70); Total Cells Counted 100 (MANUAL DIFF)
[2024-07-08 08:21] LABS: Absolute Neutrophil Count 4.9 X10^3/uL (2.0-7.7); Platelet Estimate ADEQUATE (ADEQ); Red Cell Morphology NORM C+C NORMAL (NORM C&C)
[2024-07-08 08:22] LABS: Absolute Lymphocyte Count 0.69 X10^3/uL (0.83-4.51)
[2024-07-08] MEDS: Cholecalciferol (VIT D3) 25 MCG TABLET (1,000 UNITS) GT (08:30)
--- NOTE | 2024-07-08 08:32 | NURSING ---
Checked patient peg tube for residual 0 connected to [facility] at this time Running at 65 ml/hr
[2024-07-08] MEDS: Tuberculin,Purif.prot.deriv. 50 TU/ML Vial 0.1 ML ID (10:11)
[2024-07-08] MEDS: Ferrous Sulfate 300 MG/5 ML UDC GT (12:30)
--- NOTE | 2024-07-08 12:31 | NURSING ---
Drying Machine Operator Package Yarns Note; MDS for 07/07/2024 Complete
[2024-07-08] MEDS: Acetaminophen 650 MG/20 ML UDC GT ×2 (12:32→21:55)
[2024-07-08 12:36] LABS: Bedside Glucose 126 mg/dL (74-106)
[2024-07-08 13:19] LABS: Pathologist Review Reviewed
--- NOTE | 2024-07-08 14:08 | CASEMGMT ---
Social Work SW updated pt at bedside that insurance approved with NRD 07/12. Pt happy and appreciative. SW phoned to update on NRD and improvements with therapy. very appreciative. Richelle Wall, PROFESSOR OF MUSIC PASSENGER BOOKING CLERK
[2024-07-08 14:57] VITALS: BP 111/74; PULSE 82; RESP 16; TEMP 36.7; O2SAT 97
[2024-07-08 16:54] LABS: Bedside Glucose 101 mg/dL (74-106)
[2024-07-08 22:09] LABS: Bedside Glucose 113 mg/dL (74-106)
[2024-07-08] MEDS: Jevity 1.5 1,000 ML 65 ML GT (22:22)
[2024-07-08 22:34] VITALS: RESP 15
--- NOTE | 2024-07-09 04:29 | NURSING ---
Jevity paused and disconnected at 0425, will resume at 0800 per order. Flushed with 160 cc water.
[2024-07-09 05:23] VITALS: BMI 17.8
[2024-07-09] MEDS: levoFLOXacin 750 MG Tablet GT (05:31)
[2024-07-09] MEDS: Acetaminophen 650 MG/20 ML UDC GT (05:35)
[2024-07-09 06:31] LABS: Bedside Glucose 107 mg/dL (74-106)
[2024-07-09] MEDS: Cholecalciferol (VIT D3) 25 MCG TABLET (1,000 UNITS) GT (09:07)
[2024-07-09] MEDS: Ferrous Sulfate 300 MG/5 ML UDC GT (09:07)
[2024-07-09] MEDS: Potassium Chloride Oral Soln 20 MEQ/15 ML UDC GT ×2 (09:07→21:43)
[2024-07-09] MEDS: Menthol/Lanolin/Calamine/Znox 113 GM Tube 1 APPLIC TOPICAL ×2 (09:17→21:43)
[2024-07-09] MEDS: Nystatin Powder 15gm Bottle 1 APPLIC TOPICAL (09:17)
[2024-07-09 11:19] LABS: Bedside Glucose 92 mg/dL (74-106)
[2024-07-09 13:36] VITALS: BP 120/71; PULSE 80; RESP 25; TEMP 36.3; O2SAT 97
--- NOTE | 2024-07-09 16:10 | RAD_ITS ---
STUDY: X-RAY - ABDOMEN/PELVIS REASON FOR EXAM: Male, 59 years old. Constipation and abdominal pain TECHNIQUE: Single AP view of the abdomen / pelvis. COMPARISON: None. FINDINGS: Normal visualized lung bases. There is gaseous distention of the colon, most compatible with a colonic ileus. Percutaneous gastrostomy tube. The visualized liver, spleen and kidneys are grossly normal in size and morphology. Normal soft tissue structures. Normal visualized osseous structures. RAD/Abdomen Single View IMPRESSION: Moderately dilated air-filled colon suggestive of ileus. Electronically Signed: Valentín Fernandez MD at 20:23 EDT ,
[2024-07-09 16:27] LABS: Bedside Glucose 105 mg/dL (74-106)
--- NOTE | 2024-07-09 18:37 | NURSING ---
reports this AM that patient has complained of abdominal pain last couple of days and that belly has become distended. This AM, patient denied abdominal pain or any other complaints, but abdomen is rounded and firm. Has had soft BMs during the night and had a liquid stool for therapy this AM. When asked this afternoon, patient did complain of abdominal pain. Abdomen is distended and tender to palpation. Some air released from PEG with no relief and BS are very active making sharp plinking noises. Dr. Marie made aware and NO for KUB and enema. KUB completed STAT and enema completed with moderate amount of liquid stool.
--- NOTE | 2024-07-09 19:40 | NURSING ---
Jevity 1.5 hooked up to peg at this time at 65ml/hr and 160ml water flush q4h.
[2024-07-09] MEDS: 0.9% Normal Saline (1000mL) 1,000 ML 75 ML IV (21:42)
[2024-07-09 23:45] LABS: Bedside Glucose 120 mg/dL (74-106)
[2024-07-10 06:13] VITALS: BMI 17.9
[2024-07-10 06:29] LABS: Bedside Glucose 104 mg/dL (74-106)
[2024-07-10] MEDS: Ferrous Sulfate 300 MG/5 ML UDC GT (08:15)
[2024-07-10] MEDS: Potassium Chloride Oral Soln 20 MEQ/15 ML UDC GT ×2 (08:15→21:16)
[2024-07-10] MEDS: Nystatin Powder 15gm Bottle 1 APPLIC TOPICAL (08:16)
[2024-07-10] MEDS: Menthol/Lanolin/Calamine/Znox 113 GM Tube 1 APPLIC TOPICAL ×2 (08:16→21:16)
[2024-07-10] MEDS: Cholecalciferol (VIT D3) 25 MCG TABLET (1,000 UNITS) GT (08:16)
[2024-07-10] MEDS: Jevity 1.5 1,000 ML 65 ML GT (08:19)
[2024-07-10 11:22] LABS: Bedside Glucose 105 mg/dL (74-106)
[2024-07-10 14:37] VITALS: BP 114/72; PULSE 81; RESP 18; TEMP 36.4; O2SAT 97
[2024-07-10 17:20] LABS: Bedside Glucose 127 mg/dL (74-106)
[2024-07-10] MEDS: Simethicone 40MG/0.6ML Bottle 80 MG PO ×2 (18:02→21:17)
[2024-07-10 21:35] VITALS: O2SAT 97
[2024-07-10 21:48] LABS: Bedside Glucose 112 mg/dL (74-106)
[2024-07-11] MEDS: Simethicone 40MG/0.6ML Bottle 80 MG GT ×4 (05:35→23:04)
--- NOTE | 2024-07-11 05:41 | NURSING ---
Residual 0ml at hs prior to medication administration and 0ml this am. Tube feed disconnected at 0350. Will continue to monitor.
[2024-07-11 06:12] VITALS: BMI 18.4
[2024-07-11 06:27] LABS: Bedside Glucose 94 mg/dL (74-106)
[2024-07-11] MEDS: Jevity 1.5 1,000 ML 65 ML GT (08:52)
[2024-07-11] MEDS: Cholecalciferol (VIT D3) 25 MCG TABLET (1,000 UNITS) GT (10:48)
[2024-07-11] MEDS: Nystatin Powder 15gm Bottle 1 APPLIC TOPICAL (10:48)
[2024-07-11] MEDS: Potassium Chloride Oral Soln 20 MEQ/15 ML UDC GT ×2 (10:48→23:04)
[2024-07-11] MEDS: Ferrous Sulfate 300 MG/5 ML UDC GT (10:48)
[2024-07-11] MEDS: Menthol/Lanolin/Calamine/Znox 113 GM Tube 1 APPLIC TOPICAL ×2 (10:56→23:23)
[2024-07-11 11:08] LABS: Bedside Glucose 93 mg/dL (74-106)
--- NOTE | 2024-07-11 12:00 | NURSING ---
Offered covid vaccine, VIS provided. Resident refused at this time.
[2024-07-11 12:37] VITALS: BP 116/66; PULSE 78; RESP 18; TEMP 36.2; O2SAT 96
[2024-07-11 17:36] LABS: Bedside Glucose 107 mg/dL (74-106)
[2024-07-11 22:09] LABS: Bedside Glucose 110 mg/dL (74-106)
[2024-07-11] MEDS: Senna/Docusate Sodium 1 Tablet GT (23:04)
[2024-07-11] MEDS: Acetaminophen 650 MG/20 ML UDC GT (23:05)
[2024-07-11] MEDS: 0.9% Saline Lock 10 ML Syringe IV (23:07)
[2024-07-11 23:10] VITALS: RESP 16
[2024-07-12] MEDS: Jevity 1.5 1,000 ML 65 ML GT ×2 (00:54→22:48)
--- NOTE | 2024-07-12 04:11 | NURSING ---
Jevity 1.5 paused at 0400 per order, refer to directions on NOV. PEG flushed with 160 cc.
[2024-07-12 04:24] VITALS: RESP 16
[2024-07-12 05:11] VITALS: BMI 17.5
[2024-07-12 06:06] LABS: Bedside Glucose 90 mg/dL (74-106)
[2024-07-12] MEDS: Simethicone 40MG/0.6ML Bottle 80 MG GT ×4 (06:20→22:31)
[2024-07-12 08:15] VITALS: BP 138/76; PULSE 80; RESP 18; TEMP 36.5; O2SAT 96
--- NOTE | 2024-07-12 08:18 | MDS.RN ---
Information for the MDS was obtained from review of the clinical record, interview of resident, staff, and direct observation of resident?s care.
[2024-07-12 08:37] VITALS: BMI 17.9
[2024-07-12] MEDS: Nystatin Powder 15gm Bottle 1 APPLIC TOPICAL (08:42)
[2024-07-12] MEDS: Potassium Chloride Oral Soln 20 MEQ/15 ML UDC GT ×2 (08:42→22:31)
[2024-07-12] MEDS: Cholecalciferol (VIT D3) 25 MCG TABLET (1,000 UNITS) GT (08:42)
[2024-07-12] MEDS: Senna/Docusate Sodium 1 Tablet GT ×2 (08:42→22:32)
[2024-07-12] MEDS: Polyethylene Glycol 3350 17 GM PACKET GT (08:42)
[2024-07-12] MEDS: Ferrous Sulfate 300 MG/5 ML UDC GT (08:42)
[2024-07-12] MEDS: Menthol/Lanolin/Calamine/Znox 113 GM Tube 1 APPLIC TOPICAL ×2 (08:42→22:32)
[2024-07-12 11:40] LABS: Bedside Glucose 109 mg/dL (74-106)
[2024-07-12] MEDS: Acetaminophen 650 MG/20 ML UDC GT ×2 (11:57→17:15)
--- NOTE | 2024-07-12 12:01 | NURSING ---
Education provided to spouse on administrating fluids via peg tube. Spouse practiced administering water.
--- NOTE | 2024-07-12 13:19 | CASEMGMT ---
Social Work SW received outcome from insurance update - approved with NRD 07/14. recognized pt's progress and will consider approving more time with continued progress. Pt is now a x1 assist and therapy will not be co-treated starting tomorrow. attended therapy training this morning. SW met with as well to answer questions and provided resources for skilled and nonskilled HHC, per 's request. Therapy scheduled training with again for 07/13 at 0900. -- SW spoke with pt and at bedside to update on insurance approval. Confirmed training tomorrow and informed that nursing will teach after therapy on the use of the peg tube. agreed. SW inquired if their dtr can attend also or schedule another time, for another person to get trained. adamantly denied, explaining dtr is moving from [place] to [place] and has to work and too many other responsibilities that she will not be helping. stated pt could do the peg tube feedings prior, so now it will just be pt and . SW acknowledged. Explained that staff wants to ensure has other assistance and that she is understanding all the instructions and information, offering firmware software verification engineer. pt responded, I comprehend. SW confirmed. Will continue to follow. Richelle Wall, FUNERAL DRIVER PHOTOVOLTAIC INSTALLATION TECHNICIAN
[2024-07-12 16:46] LABS: Bedside Glucose 120 mg/dL (74-106)
[2024-07-12 22:36] LABS: Bedside Glucose 94 mg/dL (74-106)
--- NOTE | 2024-07-13 04:08 | NURSING ---
Jevity 1.5 paused at 0400 per order. Resume Jevity at 0800 per order. PEG flushed with 160ml water.
[2024-07-13] MEDS: Simethicone 40MG/0.6ML Bottle 80 MG GT ×4 (05:33→22:54)
[2024-07-13 05:47] VITALS: BMI 17.4
[2024-07-13 06:33] LABS: Bedside Glucose 93 mg/dL (74-106)
[2024-07-13] MEDS: Menthol/Lanolin/Calamine/Znox 113 GM Tube 1 APPLIC TOPICAL ×2 (08:16→22:56)
[2024-07-13] MEDS: Polyethylene Glycol 3350 17 GM PACKET GT (08:17)
[2024-07-13] MEDS: Nystatin Powder 15gm Bottle 1 APPLIC TOPICAL (08:17)
[2024-07-13] MEDS: Ferrous Sulfate 300 MG/5 ML UDC GT (08:17)
[2024-07-13] MEDS: Potassium Chloride Oral Soln 20 MEQ/15 ML UDC GT ×2 (08:17→22:55)
[2024-07-13] MEDS: Acetaminophen 650 MG/20 ML UDC GT (08:18)
[2024-07-13] MEDS: Cholecalciferol (VIT D3) 25 MCG TABLET (1,000 UNITS) GT (08:18)
[2024-07-13] MEDS: Senna/Docusate Sodium 1 Tablet GT (08:18)
[2024-07-13] MEDS: 0.9% Saline Lock 10 ML Syringe IV (08:20)
[2024-07-13 08:37] VITALS: BP 121/62; PULSE 83; O2SAT 97
--- NOTE | 2024-07-13 08:51 | NURSING ---
PEG PLACEMENT VERIFIED,0 RESIDUAL, MEDS GIVEN THREW PEG. JEVITY STARTED BACK UP AT 0830 60ML/HR,FLUSH 160 EVERY 4 HRS. PT TOLERATED WELL,WILL CONTINUE TO MONITOR.
[2024-07-13 11:56] LABS: Bedside Glucose 90 mg/dL (74-106)
[2024-07-13] MEDS: Jevity 1.5. 1,000 ML Bottle 260 ML GT ×3 (13:43→22:56)
[2024-07-13 14:09] VITALS: BP 129/72; PULSE 80; RESP 16; TEMP 36.9; O2SAT 97
--- NOTE | 2024-07-13 15:25 | NURSING ---
JEVITY STOPPED AT 1030 AM DUE TO ORDER CHANGED. JEVITY NOW GIVEN BY BOLUS AT 260ML 4X A DAY WITH 95 ML FLUSH BEFORE AND AFTER EACH FEED. RN AWARE
[2024-07-13 17:14] LABS: Bedside Glucose 101 mg/dL (74-106)
--- NOTE | 2024-07-13 18:10 | NURSING ---
PT HAD 15ML RESIDUAL AT 1700.
[2024-07-13 21:59] LABS: Bedside Glucose 90 mg/dL (74-106)
[2024-07-14] MEDS: Acetaminophen 650 MG/20 ML UDC GT ×2 (05:15→18:29)
[2024-07-14] MEDS: Simethicone 40MG/0.6ML Bottle 80 MG GT ×4 (05:15→22:20)
[2024-07-14] MEDS: Jevity 1.5. 1,000 ML Bottle 260 ML GT ×4 (05:19→22:21)
--- NOTE | 2024-07-14 05:33 | NURSING ---
Tube feed residual 0ml this am.
[2024-07-14 06:33] LABS: Bedside Glucose 107 mg/dL (74-106)
[2024-07-14] MEDS: Menthol/Lanolin/Calamine/Znox 113 GM Tube 1 APPLIC TOPICAL ×2 (09:44→22:21)
[2024-07-14] MEDS: Ferrous Sulfate 300 MG/5 ML UDC GT (09:45)
[2024-07-14] MEDS: Potassium Chloride Oral Soln 20 MEQ/15 ML UDC GT ×2 (09:45→22:19)
[2024-07-14] MEDS: Senna/Docusate Sodium 1 Tablet GT ×2 (09:45→22:19)
[2024-07-14] MEDS: Polyethylene Glycol 3350 17 GM PACKET GT (09:45)
[2024-07-14] MEDS: Nystatin Powder 15gm Bottle 1 APPLIC TOPICAL (09:45)
[2024-07-14] MEDS: Cholecalciferol (VIT D3) 25 MCG TABLET (1,000 UNITS) GT (09:46)
[2024-07-14 10:28] VITALS: BP 117/74; PULSE 78; O2SAT 98
--- NOTE | 2024-07-14 10:29 | NURSING ---
PEG PLACEMENT VERIFIED, 15 RESIDUAL AT 10AM. MEDS AND JEVITY/FLUSH GIVEN PER ORDER. PT TOLERATED WELL.
[2024-07-14 11:30] VITALS: PULSE 78; RESP 18; O2SAT 98
[2024-07-14 12:10] LABS: Bedside Glucose 85 mg/dL (74-106)
--- NOTE | 2024-07-14 13:55 | NURSING ---
PT REFUSED 1400 BOLUS. PT STATED HE FELT TO FULL. 5 RESIDUAL AND GAVE MEDS WITH 90 FLUSH. SPEECH AND DIETARY AWARE.
[2024-07-14 16:00] VITALS: BP 136/76; PULSE 82; RESP 16; TEMP 36.7; O2SAT 95
--- NOTE | 2024-07-14 16:44 | CASEMGMT ---
Social Work SW phoned to update her that insurance approved with NRD 07/18. appreciative. SW updated [facility] via [employer]. Richelle Wall, MOTOR MECHANIC INTERNATIONAL MANAGER
[2024-07-14 17:09] LABS: Bedside Glucose 95 mg/dL (74-106)
[2024-07-14 21:41] LABS: Bedside Glucose 99 mg/dL (74-106)
[2024-07-15] MEDS: Simethicone 40MG/0.6ML Bottle 80 MG GT ×4 (05:49→22:39)
[2024-07-15] MEDS: Jevity 1.5. 1,000 ML Bottle 260 ML GT (05:50)
[2024-07-15 05:52] LABS: Absolute Lymphocyte Count 0.69 X10^3/uL (0.83-4.51); Absolute Neutrophil Count 2.3 X10^3/uL (2.0-7.7); Basophil# 0.04 X10^3/uL; Basophil% 1.1 % (0-1); Eosinophils% 2.7 % (0-5); Hematocrit 33.9 % (40-54); Lymphocyte # 0.69 X10^3/ul (0.83-4.51); Lymphocyte % 18.5 % (19-41); Mean Corp Hgb Conc 32.4 g/dL (32-36); Mean Corpuscular Hgb 32.6 pg (27.0-32.0); Mean Corpuscular Volume 100.6 fL (80-94); Mean Platelet Vol. 9.6 fl (6.2-12.0); Monocyte# 0.56 X10^3/uL; NRBC Flagged by Analyzer 0 % (0-5); Neutrophil % 61.6 % (47-70); Platelet Count 352 K/mm3 (150-450); RBC Distribution Width CV 15.4 % (11.6-14.6); RBC Distribution Width SD 57.1 fl (35.1-43.9); Red Blood Count 3.37 M/mm3 (4.6-6.2); White Blood Count 3.7 K/mm3 (4.4-11.0)
[2024-07-15 06:18] VITALS: BMI 17.6
[2024-07-15 06:21] LABS: Anion Gap 6 (5-15); BUN 14 mg/dL (7-18); BUN/Creat Ratio 32.6 RATIO (10-20); Calcium,Total 9.7 mg/dL (8.5-10.1); Chloride 105 mmol/L (98-107); Creatinine, Serum 0.43 mg/dL (0.70-1.30); EST Glomerular Filtration Rate 214 mL/min (>60); Est Glom Filt Rate - Afr Amer 259 mL/min (>60); Estimated Creatinine Clearance 150.46 ml/min; Glucose 96 mg/dL (74-106); Potassium 3.6 mmol/L (3.5-5.1); Sodium Level 136 mmol/L (136-145)
[2024-07-15 07:33] LABS: Bedside Glucose 122 mg/dL (74-106)
[2024-07-15 09:15] VITALS: BMI 17.6
[2024-07-15] MEDS: Polyethylene Glycol 3350 17 GM PACKET GT (09:59)
[2024-07-15] MEDS: Senna/Docusate Sodium 1 Tablet GT ×2 (09:59→22:40)
[2024-07-15] MEDS: Potassium Chloride Oral Soln 20 MEQ/15 ML UDC GT ×2 (09:59→22:39)
[2024-07-15] MEDS: Ferrous Sulfate 300 MG/5 ML UDC GT (09:59)
[2024-07-15] MEDS: Cholecalciferol (VIT D3) 25 MCG TABLET (1,000 UNITS) GT (10:00)
[2024-07-15] MEDS: Menthol/Lanolin/Calamine/Znox 113 GM Tube 1 APPLIC TOPICAL ×2 (10:00→22:37)
[2024-07-15] MEDS: Nystatin Powder 15gm Bottle 1 APPLIC TOPICAL (10:00)
[2024-07-15 11:24] LABS: Bedside Glucose 92 mg/dL (74-106)
[2024-07-15] MEDS: Jevity 1.5. 1,000 ML Bottle 130 ML GT ×3 (14:10→22:38)
--- NOTE | 2024-07-15 14:43 | WOUNDNOTE ---
wound photo: left heel
[2024-07-15 15:10] VITALS: BP 134/72; PULSE 80; RESP 16; TEMP 36.4; O2SAT 98
[2024-07-15 16:17] LABS: Bedside Glucose 96 mg/dL (74-106)
[2024-07-15] MEDS: Metoclopramide 10 MG/10 ML UDC GT ×2 (17:54→22:40)
[2024-07-15 21:33] LABS: Bedside Glucose 88 mg/dL (74-106)
[2024-07-16] MEDS: Acetaminophen 650 MG/20 ML UDC GT ×2 (02:13→11:38)
[2024-07-16 05:31] VITALS: BMI 17.6
[2024-07-16 06:37] LABS: Bedside Glucose 96 mg/dL (74-106)
[2024-07-16] MEDS: Metoclopramide 10 MG/10 ML UDC GT ×4 (06:39→20:27)
[2024-07-16] MEDS: Jevity 1.5. 1,000 ML Bottle 130 ML GT ×4 (06:39→20:29)
[2024-07-16] MEDS: Simethicone 40MG/0.6ML Bottle 80 MG GT ×4 (06:40→20:28)
--- NOTE | 2024-07-16 06:54 | NURSING ---
Residual 0 ml prior to scheduled TF this am.
[2024-07-16] MEDS: Ferrous Sulfate 300 MG/5 ML UDC GT (10:23)
[2024-07-16] MEDS: Potassium Chloride Oral Soln 20 MEQ/15 ML UDC GT ×2 (10:24→20:27)
[2024-07-16] MEDS: Polyethylene Glycol 3350 17 GM PACKET GT (10:24)
[2024-07-16] MEDS: Senna/Docusate Sodium 1 Tablet GT (10:25)
[2024-07-16] MEDS: Cholecalciferol (VIT D3) 25 MCG TABLET (1,000 UNITS) GT (10:25)
[2024-07-16] MEDS: Menthol/Lanolin/Calamine/Znox 113 GM Tube 1 APPLIC TOPICAL ×2 (10:29→20:28)
[2024-07-16] MEDS: Nystatin Powder 15gm Bottle 1 APPLIC TOPICAL (10:29)
[2024-07-16 10:44] VITALS: BP 140/88; PULSE 84; O2SAT 99
[2024-07-16 11:20] LABS: Bedside Glucose 122 mg/dL (74-106)
[2024-07-16 15:11] VITALS: BP 133/80; PULSE 77; RESP 14; TEMP 36.3; O2SAT 99
[2024-07-16 17:28] LABS: Bedside Glucose 98 mg/dL (74-106)
--- NOTE | 2024-07-16 18:42 | NURSING ---
10AM PEG PLACEMENT VERIFIED,5 RESIDUAL. JEVITY/FLUSH GIVEN WITH MEDS PER ORDERS. PT REFUSED 1400 JEVITY,STATED HE FELT FULL. 1800 O RESIDUAL AND JEVITY/FLUSH GIVEN PER ORDER. PT TOLERATED WELL. TEACHING TO AT 1800. ALSO WASHED PT UP AND TRIMMED HIS TOENAILS.
[2024-07-16 20:30] VITALS: RESP 16
--- NOTE | 2024-07-16 20:51 | NURSING ---
Patient tolerated 60ml/130ml of Jevity 1.5 bolus PRIYA at HS. Patient reported he was too full for the remaining amount of Jevity 1.5. Flushed PEG with 45ml water per order.
[2024-07-16 21:41] LABS: Bedside Glucose 121 mg/dL (74-106)
[2024-07-17 05:32] VITALS: BMI 17.3
[2024-07-17] MEDS: Jevity 1.5. 1,000 ML Bottle 130 ML GT ×4 (06:01→20:42)
[2024-07-17] MEDS: Metoclopramide 10 MG/10 ML UDC GT ×3 (06:01→15:31)
[2024-07-17] MEDS: Simethicone 40MG/0.6ML Bottle 80 MG GT ×3 (06:02→17:42)
[2024-07-17 06:05] VITALS: RESP 16
[2024-07-17 06:34] LABS: Bedside Glucose 89 mg/dL (74-106)
--- NOTE | 2024-07-17 07:33 | NURSING ---
Patient tolerated 100ml/130ml of Jevity 1.5 bolus at 0600. Patient told this nurse to stop after administering 100ml of the bolus. Patient states, this is too much, I did this at home and never did this much, you can tell when to stop because it slows down more. This nurse spoke with patient that these are ordered boluses that dietary has implemented, and as speech works with him, the boluses may get reduced. Patient told this nurse to tell the doctor he is no longer taking AM and HS boluses. Patient states, I'm paying all this money for this stuff and what are we even doing? This nurse explained to patient that the goal is to introduce food to patient to eventually get off of PEG feeds, but there is a process in doing so. Patient verbalized understanding but is unhappy with the process. Written communication left for Dr. Marie, and requests have been passed off to dayshift staff so they are aware.
[2024-07-17] MEDS: Potassium Chloride Oral Soln 20 MEQ/15 ML UDC GT ×2 (09:37→20:40)
[2024-07-17] MEDS: Nystatin Powder 15gm Bottle 1 APPLIC TOPICAL (09:38)
[2024-07-17] MEDS: Menthol/Lanolin/Calamine/Znox 113 GM Tube 1 APPLIC TOPICAL ×2 (09:39→20:41)
[2024-07-17] MEDS: Ferrous Sulfate 300 MG/5 ML UDC GT (09:39)
[2024-07-17] MEDS: Cholecalciferol (VIT D3) 25 MCG TABLET (1,000 UNITS) GT (09:39)
[2024-07-17] MEDS: Acetaminophen 650 MG/20 ML UDC GT ×3 (09:40→20:40)
[2024-07-17 12:28] LABS: Bedside Glucose 99 mg/dL (74-106)
[2024-07-17 16:00] VITALS: BP 115/71; PULSE 77; RESP 16; TEMP 37.1; O2SAT 97
[2024-07-17 16:51] LABS: Bedside Glucose 105 mg/dL (74-106)
--- NOTE | 2024-07-17 17:55 | NURSING ---
VERIFIED PEG TUBE PLACEMENT WITH ZERO RESIDUAL. 1400 BOLUS FEEDING-PATIENT REQUEST ONLY 65ML OF JEVITY. 1800 BOLUS FEEDING-PATIENT REFUSED AND AGREES TO TAKE 2200 BOLUS FEEDING. PATIENT STATES HE IS FEELING FULL MORE OFTEN.
[2024-07-17] MEDS: Phenol/Sodium Phenolate 180ML 1 SPRAY MUCOUS MEM ×2 (18:13→20:41)
[2024-07-17 22:04] LABS: Bedside Glucose 131 mg/dL (74-106)
[2024-07-18 05:34] VITALS: BMI 17.1
[2024-07-18] MEDS: Jevity 1.5. 1,000 ML Bottle 130 ML GT ×3 (06:14→15:12)
[2024-07-18] MEDS: Phenol/Sodium Phenolate 180ML 1 SPRAY MUCOUS MEM (06:27)
[2024-07-18 06:43] LABS: Bedside Glucose 101 mg/dL (74-106)
[2024-07-18] MEDS: Potassium Chloride Oral Soln 20 MEQ/15 ML UDC GT ×2 (10:13→23:42)
[2024-07-18] MEDS: Polyethylene Glycol 3350 17 GM PACKET GT (10:13)
[2024-07-18] MEDS: Ferrous Sulfate 300 MG/5 ML UDC GT (10:13)
[2024-07-18] MEDS: Cholecalciferol (VIT D3) 25 MCG TABLET (1,000 UNITS) GT (10:26)
[2024-07-18] MEDS: Menthol/Lanolin/Calamine/Znox 113 GM Tube 1 APPLIC TOPICAL ×2 (10:28→23:40)
[2024-07-18] MEDS: Nystatin Powder 15gm Bottle 1 APPLIC TOPICAL (10:28)
[2024-07-18 11:31] LABS: Bedside Glucose 153 mg/dL (74-106)
[2024-07-18] MEDS: Simethicone 40MG/0.6ML Bottle 80 MG GT ×3 (12:22→23:40)
[2024-07-18] MEDS: Acetaminophen 650 MG/20 ML UDC GT (13:11)
[2024-07-18 14:36] VITALS: BP 121/68; PULSE 78; RESP 16; TEMP 36.6; O2SAT 98
--- NOTE | 2024-07-18 16:38 | CASEMGMT ---
Social Work Pt's present in pt's room, leaving for the evening. SW updated that the insurance had not provided an outcome as of this time yet. stated she has schedule car tx training with therapy on 07/19 at 1230. SW to also coordinate with nursing for tube feeding training with as well. acknowledged nursing was teaching her this date. stated if car tx training goes well, she and pt would like to DC home. SW to discuss with IDT, but agrees with plan as pt has made significant progress with continued stay. requested skilled HHC and a hospital bed at [place]. SW to coordinate, along with tube feeding and supplies. SW to update [facility]. appreciative. SW notified by Dietitian that pt has not responded well to change in continuous to bolus tube feedings, and is going to make another change to bolus tube feedings before needing to change back to continuous. SW to follow. Richelle Wall, GLOVE PAIRER PROVIDER CONTRACTING CONSULTANT
[2024-07-18 18:30] LABS: Bedside Glucose 158 mg/dL (74-106)
[2024-07-18] MEDS: Jevity 1.5. 1,000 ML Bottle 180 ML GT ×2 (18:35→23:42)
[2024-07-18 22:22] LABS: Bedside Glucose 109 mg/dL (74-106)
--- NOTE | 2024-07-18 23:30 | NURSING ---
Tube feed residual 0 ml.
[2024-07-18] MEDS: Senna/Docusate Sodium 1 Tablet GT (23:43)
[2024-07-18] MEDS: Metoclopramide 10 MG/10 ML UDC GT (23:43)
[2024-07-18 23:45] VITALS: O2SAT 97
[2024-07-19] MEDS: Acetaminophen 650 MG/20 ML UDC GT ×2 (00:07→06:50)
[2024-07-19 06:34] LABS: Bedside Glucose 108 mg/dL (74-106)
[2024-07-19] MEDS: Jevity 1.5. 1,000 ML Bottle 180 ML GT ×4 (06:49→22:11)
[2024-07-19] MEDS: Metoclopramide 10 MG/10 ML UDC GT ×3 (06:51→15:03)
[2024-07-19] MEDS: Simethicone 40MG/0.6ML Bottle 80 MG GT ×3 (06:51→16:18)
--- NOTE | 2024-07-19 07:45 | NURSING ---
PEG tube residual 5 ml this am. Will continue to monitor.
[2024-07-19 08:26] VITALS: BP 115/68; PULSE 80; RESP 16; TEMP 36.4; O2SAT 96
--- NOTE | 2024-07-19 08:42 | CASEMGMT ---
Addendum entered by Richelle Wall 07/19/24 16:02: Therapy reported car tx went well and pt and are agreeable to DC home when insurance issues LCD. prefers to use [facility] at DC; denied list of providers. SW confirmed with [facility] that tube feed and supplies can be delivered to pts home within 2 days of DC. TCU to send home supplies for those 48 hrs. SW sent updated inquiry to [facility] on the hospital bed. SW phoned referral to [facility] for PT/OT/ST/SN/MESSINA, proactively. Will continue to follow. Original Note: Social Work SW received notification at 1715 on 07/18 that pt was approved with NRD 07/19, pending car tx training, but to anticipate DC 07/20. Insurance will be notified of car tx training, tube feeding training and updates to tube feeds to determine final DC date. SW sent referral to [facility] for tube feed and supplies via [facility]. Sent referral for hospital bed to [facility] via [facility]. Updated [facility] via [facility]. SW will continue to follow. Richelle Wall, CHILD AND ADOLESCENT THERAPIST LITHOGRAPH PRESS FEEDER
[2024-07-19] MEDS: Menthol/Lanolin/Calamine/Znox 113 GM Tube 1 APPLIC TOPICAL ×2 (09:04→22:09)
[2024-07-19] MEDS: Nystatin Powder 15gm Bottle 1 APPLIC TOPICAL (09:04)
[2024-07-19] MEDS: Senna/Docusate Sodium 1 Tablet GT (09:05)
[2024-07-19] MEDS: Polyethylene Glycol 3350 17 GM PACKET GT (09:05)
[2024-07-19] MEDS: Potassium Chloride Oral Soln 20 MEQ/15 ML UDC GT ×2 (09:06→22:09)
[2024-07-19] MEDS: Ferrous Sulfate 300 MG/5 ML UDC GT (09:06)
[2024-07-19] MEDS: Cholecalciferol (VIT D3) 25 MCG TABLET (1,000 UNITS) GT (09:06)
[2024-07-19] MEDS: Phenol/Sodium Phenolate 180ML 1 SPRAY MUCOUS MEM ×2 (09:17→22:09)
[2024-07-19 09:30] VITALS: BMI 17.3
[2024-07-19 11:09] LABS: Bedside Glucose 114 mg/dL (74-106)
--- NOTE | 2024-07-19 13:33 | NURSING ---
DID TEACHING WITH R' . SHE WAS ABLE TO GIVE JEVITY/FLUSH WITH SUPERVISION. WILL CONTINUE WITH TEACHING.
--- NOTE | 2024-07-19 15:07 | SP.MBSS_ITS ---
Modified Barium Swallow Patient Information Study Date: 07/19/24 Study Time: 13:30 Direct Billable Minutes: 120 Total Minutes procedure & reportin Diagnosis: J69.0 - aspiration pneumonia, Z85.810 - hx of tongue cancer Referring Physician: Bony Marie Chi Reason for Referral: Objectively assess swallow function, assess risk for aspiration, and determine recommendations for least restrictive diet textures and compensatory strategies to improve safety of swallow.?? Medical History: A 59-year-old male with a notable medical history was hospitalized due to weakness and failure to thrive, complicated by hyponatremia, depression, aspiration pneumonia, and dysphagia, which required PEG tube placement on 06/22/2024. He was then admitted to the Transitional Care Unit (TCU) for rehabilitation and strengthening before his discharge home with his . Prior to his TCU admission, an MBSS conducted on 06/27/2024 showed severe dysphagia in the oral phase and moderate dysphagia in the pharyngeal phase. During his stay at TCU, the patient has participated in follow-up speech therapy. He is currently NPO, with recommendations for thinner purees for pleasure and thin liquids. A repeat MBSS is scheduled before discharge. Past Medical History: Cervical spinal stenosis, ex-smoker, hypertension, leg DVT, lumbar and thoracic degenerative disc disease, malnutrition, megaloblastic anemia, and squamous cell carcinoma of the tongue (diagnosed 02/2021, treated with radiation post-op 04/2021). A tracheostomy was placed in 04/2021 and was removed along with the PEG in Summer 2021. Relevant Past Surgical History: G-tube placement (03/2021), adrianna-glossectomy (04/2021), and tracheostomy (04/2021), both the tracheostomy and PEG were removed in Summer 2021. Current Diet Ordered: NPO w/ the [place] Free Water Protocol. Respiratory Status: Oxygenating on Room Air Penetration-Aspiration Scale Penetration-Aspiration Scale: OBJECTIVE ASSESSMENT OF SWALLOW FUNCTION (QUANTITATIVE ? PER TRIAL): PENETRATION / ASPIRATION SCALE (BOND): 1 = does not enter airway 2 = enters airway/above vocal folds/ejected 3 = enters airway/above vocal folds/not ejected 4 = enters airway/contacts vocal folds/ejected 5 = enters airway/contacts vocal folds/not ejected 6 = enters airway/below vocal folds/ejected 7 = enters airway/below vocal folds/not ejected despite effort 8 = enters airway/below vocal folds/no effort VIDEOFLOROSCOPIC SCALE SCORE (BOND): Grade I = aspiration of material that has penetrated into the laryngeal vestibule, intact cough reflex Grade II = aspiration < 10 % of the bolus, intact cough reflex Grade III = aspiration of < 10 % of the bolus, reduced cough reflex or aspiration of > 10 % of the bolus, intact cough reflex Grade IV = aspiration of > 10 % of the bolus, reduced cough reflex Penetration-Aspiration Scale Score Thin Liquid via small single sip: cup: Result: 2= enter airway/above vocal folds/ejected Thin Liquid via small single sip: cup Effortful swallow: Result: 2= enter airway/above vocal folds/ejected Pudding: Result: 5= enters airways/contacts vocal folds/not ejected Comment: Post-prandial silent aspiration resulting in a PAS score of 8. Oral Phase Labial Seal: Escape beyond mid-chin Tongue Control During Bolus Hold: Posterior escape of greater than half of bolus Bolus Transport/Lingual Motion: Minimal to no tongue motion Oral Residue: Majority of bolus remaining Pharyngeal Phase Initiation of Pharyngeal Swallow: Bolus head in pyriforms Soft Palate Elevation: No bolus between soft palate and pharyngeal wall Laryngeal Elevation: Min superior movement thyroid cart/min apprx aryte cart- epig petiole Anterior Hyoid Excursion: Partial anterior movement Epiglottic Movement: Partial inversion Laryngeal Vestibule Closure at Height of Swallow: Incomplete; narrow column of air/contrast in laryngeal vestibule Pharyngeal Stripping Wave: Present - diminished Pharyngoesophageal Segment Opening: Minimal distension and minimal duration; marked obstruction of flow Tongue Base Retraction: Wide column of contrast between tongue base & post. pharyngeal wall Pharyngeal Residue: Collection of residue within or on pharyngeal structures Diagnosis/Impression Diagnosis: severe oropharyngeal dysphagia R13.12 Impression: The patient presents with severe oral phase dysphagia characterized by: * Impaired labial seal, leading to anterior spillage of pudding. * Reduced oral bolus control, with premature spillage occurring prior to swallow onset. * Minimal to no anterior-posterior AP transit of the bolus, with observed lingual pumping. The patient required a liquid wash to assist with the AP transit of pudding, as he was unable to transit it independently. * Significant oral residue (>50%) remaining after the swallow, likely due to reduced intraoral sensitivity and strength. This residue spilled into the vallecula and pyriform sinuses post-swallow, contributing to pharyngeal residue and increasing the risk of post-prandial aspiration. The patient presents with moderate pharyngeal phase dysphagia characterized by: * During a thin liquid trial via teaspoon, the patient consumed half a teaspoon, resulting in immediate spillage into the vallecula before swallow initiation. 100% of the bolus remained in the vallecula, with no additional swallowing attempts made despite prompts from the [employer] [employer]. Sensation was decreased, although the bolus was small. * Laryngeal penetration was observed with thin liquids from a cup, attributed to reduced laryngeal elevation, insufficient epiglottic inversion, poor laryngeal vestibule closure, and overall pharyngeal weakness. * A significant amount of pharyngeal residue was noted in the vallecula and pyriform sinuses post-swallow, attributed to a wide tongue base, diminished pharyngeal stripping wave, and inadequate upper esophageal sphincter (UES) opening. The patient was unable to clear the residue independently, and cues for double swallowing (dry swallow) and/or effortful swallowing were ineffective. A chin tuck maneuver, also cued by the [facility]REIGHT WEIG[facility], led to laryngeal penetration and did not clear the vallecular residue. * Post-prandial SILENT aspiration was observed following the pudding trial due to pharyngeal residue. The patient is at high risk for aspiration given the inability to clear these residues, which were seen spilling into the airway during fluoroscopic assessments. Overall, the patient is not safe to transition to a PO diet. The [facility] recommends continuation of NPO status (with PEG for primary nutrition and hydration) and adherence to the [place] Free Water Protocol. Given the severity of oropharyngeal deficits, the patient is at high risk for aspiration. Goals of care should be established before initiating speech therapy services at the next level of care. Initially, the patient expressed a desire to eat by mouth (specifically a [place] slider), but later acknowledged to the hospital dietitian that he understood he would need to rely on the PEG for nutrition for the foreseeable future. If the patient wishes to consume PO for pleasure and understands the aspiration risks associated with this, the FREIGHT WEIGHER recommends thinner purees and thin liquids. Recommendations Diet: NPO ([place]riguez Free Water Protocol) Recommend Repeat Modified Barium Swallow: Yes Need for Skilled Speech Therapy Services: Yes Education Completed: 1. Described result of evaluation. and 2. Pt understands evaluation & agrees with goals and treatment plan. Status Active ST Patient: Active Contact Information [facility]:: Maddie Holbrook M.A. [facility] Speech-Language Pathologist [facility] [address] [place] [address] [email or web address] [phone]
[2024-07-19 16:47] LABS: Bedside Glucose 97 mg/dL (74-106)
[2024-07-19 21:48] LABS: Bedside Glucose 113 mg/dL (74-106)
[2024-07-20] MEDS: Jevity 1.5. 1,000 ML Bottle 180 ML GT (06:26)
[2024-07-20 06:50] LABS: Bedside Glucose 95 mg/dL (74-106)
[2024-07-20 09:51] VITALS: BP 123/77; PULSE 86; RESP 16; TEMP 36.6; O2SAT 98
[2024-07-20] MEDS: Nystatin Powder 15gm Bottle 1 APPLIC TOPICAL (09:53)
[2024-07-20] MEDS: Menthol/Lanolin/Calamine/Znox 113 GM Tube 1 APPLIC TOPICAL (09:53)
[2024-07-20] MEDS: Potassium Chloride Oral Soln 20 MEQ/15 ML UDC GT (09:56)
[2024-07-20] MEDS: Ferrous Sulfate 300 MG/5 ML UDC GT (09:56)
[2024-07-20] MEDS: Cholecalciferol (VIT D3) 25 MCG TABLET (1,000 UNITS) GT (09:56)
[2024-07-20] MEDS: Metoclopramide 10 MG/10 ML UDC GT (09:59)
[2024-07-20] MEDS: Jevity 1.5. 1,000 ML Bottle 200 ML GT (10:07)
[2024-07-20 11:43] LABS: Bedside Glucose 154 mg/dL (74-106)
--- NOTE | 2024-07-20 13:00 | CASEMGMT ---
Social Work SW spoke with pt's and updated that insurance has denied continued stay with discharge planned for today. Pt feels pt is ready to return home on this date and has no concerns with discharge. states that the hospital bed has been delivered but pt will need a matress topper. to transport pt home. NELLY Peoples updated. NANI Borden
--- NOTE | 2024-07-20 13:02 | CASEMGMT ---
Social Work Notified by insurance that pt did not get approved continued stay and LCD 07/19, DC 07/20. SW updated IDT, [facility] - who can accept with SOC 07/22; [employer] - inquired about delivery for this date. and pt to be notified. to transport. Plan: DC home with , [facility] PT/OT/ST/SN/[facility], hospital bed w/gel overlay Richelle Wall, ENGINEERING SUPERVISOR [employer]AL[employer]INE[employer]ICE
--- NOTE | 2024-07-20 13:09 | DS.PCM_ITS ---
Providers Date of Admission: 06/30/24 Primary Care Physician: Dr. Tru Fraser DO Consultations 07/01/24 00:03 Consult: Onc/Wound/program/music director Routine Comment: Reason for Consult:: open area to left heel Reason For Visit: 2 UNITS PRBC Diagnosis Discharge Diagnosis (1) Debility: Status: Acute Code(s): R53.81 - Other malaise (2) Failure to thrive: Status: Acute (3) Hyponatremia: Status: Acute Code(s): E87.1 - Hypo-osmolality and hyponatremia (4) Elevated liver function tests: Status: Acute Code(s): R79.89 - Other specified abnormal findings of blood chemistry (5) Cholelithiasis: Status: Acute Code(s): K80.20 - Calculus of gallbladder without cholecystitis without obstruction (6) Dysphagia: Status: Acute Code(s): R13.10 - Dysphagia, unspecified (7) Aspiration pneumonia: Status: Acute Code(s): J69.0 - Pneumonitis due to inhalation of food and vomit (8) Depression: Status: Acute Code(s): F32.A - Depression, unspecified (9) Essential (primary) hypertension: Status: Acute Code(s): I10 - Essential (primary) hypertension (10) DVT (deep venous thrombosis): Status: Acute Code(s): I82.409 - Acute embolism and thrombosis of unspecified deep veins of unspecified lower extremity (11) Pulmonary embolism: Status: Acute Code(s): I26.99 - Other pulmonary embolism without acute cor pulmonale (12) Malnutrition: Status: Acute Code(s): E46 - Unspecified protein-calorie malnutrition (13) History of tongue cancer: Status: Acute Code(s): Z85.810 - Personal history of malignant neoplasm of tongue Plan 59 year old male with below past medical history hospitalized for weakness, failure to thrive, complicated by hyponatremia, depression, aspiration pneumonia, dysphagia requiring peg, admitted to TCU with debility, here for rehabilitation, strengthening, prior to discharge home with . * Debility - PT/OT. * Dysphagia - ST. * Pain - Oxycodone 5mg q6 prn. * Bowel - Miralaax 17gm daily prn. * Adult immunization - Administer pneumonia vaccine, covid vaccine, flu vaccine as appropriate. * DVT prophylaxis - Lovenox 30mg sc daily. * Vitamin D deficiency - D 1.25mg qweek. * Iron deficiency anemia - Ferrous sulfate 300mg daily. * Allergic rhinitis - Flonase 2 sprays nasal daily prn. * Shortness of breath - Duoneb 3ml tid prn. * Tinea Corporis - Nystatin powder topical bid. * Sore throat - Chloraseptic 1 spray q2h prn. * Nutrition - Pivot 1.5 50mL/hour. * Hypokalemia - KCL 20meq bid. * Neuropathy - Lyrica 75mg bid. Medications at Discharge Home Medications acetaminophen 650 mg/20.3 mL oral solution 650 mg (20.3 mL) G-tube Q4H PRN PRN Pain Score 1-10 30 days #1,000 mL 07/20/24 cholecalciferol (vitamin D3) 25 mcg (1,000 unit) tablet 25 mcg G-tube DAILY 30 days #30 tabs 07/20/24 ferrous sulfate 300 mg (60 mg iron)/5 mL oral liquid 300 mg (5 mL) G-tube DAILY 30 days #150 mL 07/20/24 lactose-reduced food with fiber 0.06 gram-1.5 kcal/mL oral liquid (Jevity 1.5 Mark) 220 ml G-tube 0600,1000,1400,1800,2200 30 days #20,000 mL 07/20/24 phenol 1.4 % mucosal aerosol spray (Sore Throat (phenol)) 1 spray mucous membrane Q2H PRN sore throat 30 days #300 mL 07/20/24 polyethylene glycol 3350 17 gram/dose oral powder (Miralax) 17 g PO DAILY PRN constipation 30 days #510 grams 07/20/24 potassium chloride 20 mEq/15 mL oral liquid 20 meq (15 mL) G-tube BID 30 days #900 mL 07/20/24 sennosides 8.6 mg-docusate sodium 50 mg tablet (Stimulant Laxative Plus) 1 tab G-tube BID 30 days #60 tabs 07/20/24 simethicone 40 mg/0.6 mL oral drops,suspension (Infants Simethicone) 80 mg (1.2 mL) G-tube 4X/DAY 30 days #144 mL 07/20/24 Hospital Course Operations None Procedures None Summary of Care Provided Minutes Spent on Discharge: 35 Hospital Course: 59 year old male with below past medical history hospitalized for weakness, failure to thrive, complicated by hyponatremia, depression, aspiration pneumonia, dysphagia requiring peg, admitted to TCU with debility, here for rehabilitation, strengthening, prior to discharge home with . Discharge home with 07/20/2024, [facility] PT/OT/ST/SN/[facility], Hospital bed with gel overlay. Hospital Bed: Patient requires a hospital bed due to needing frequent changes in position to alleviate pain, prevent ongoing pressure areas, assist in healing of current pressure areas, prevent aspiration or due to respiratory condition. DX: Aspiration pneumonia, dysphagia, status post PEG tube, tube feed dependent. Tubefeed: Patient is NPO, tubefeed dependent, history aspiration pneumonia, length of need 99 months. Physical Exam Const alert General Appearance: cooperative HEENT normocephalic Eyes PERRL and EOMs intact bilaterally Neck supple, no JVD and no carotid bruits Resp normal respiratory effort, normal air movement and clear to auscultation bilaterally Cardio regular rate and regular rhythm GI normal to inspection, nondistended, normoactive bowel sounds, non-tender and non-distended GI Narrative: PEG present. Extremity normal capillary refill General Extremity: Negative for edema Skin no rashes or lesions noted General Skin Exam: no breakdown Psych affect normal Appearance: appropriate Weight / BMI Weight Weight: 58.06 kg Body Mass Index (BMI) 17.3 ABG / Lab / Microbiology Data 07/15/24 05:08 07/15/24 05:08 Laboratory: Laboratory Results - last 24 hr 07/19/24 16:24: POC Glucose 97 07/19/24 21:25: POC Glucose 113 H 07/20/24 06:32: POC Glucose 95 07/20/24 11:25: POC Glucose 154 H Microbiology: Microbiology 07/12/24 04:53 Nasal Secretion SARS-CoV-2 Antigen (Rapid) - Final 07/05/24 06:13 Nasal Secretion SARS-CoV-2 Antigen (Rapid) - Final 06/30/24 18:30 Nasal Secretion SARS-CoV-2 Antigen (Rapid) - Final D/C Instructions Discharge Diet: - (NPO, TF only.) Discharge Activity: Return to Normal Activity, May Shower and Use Walker May resume sexual activity in: No Restrictions Weight Bearing Status: Weight bearing as tolerated Call your doctor if you observe: Fever of 101 or Higher, Inability to urinate, Inability to have a bowel movement, Shortness of breath, Dizziness, Fainting spells, Swelling in the ankles, Chest pain and Uncontrolled pain Additional Instructions: Discharge home with 07/20/2024, [facility] PT/OT/ST/SN/[facility], Hospital bed with gel overlay. Hospital Bed: Patient requires a hospital bed due to needing frequent changes in position to alleviate pain, prevent ongoing pressure areas, assist in healing of current pressure areas, prevent aspiration or due to respiratory condition. DX: Aspiration pneumonia, dysphagia, status post PEG tube, tube feed dependent. Tubefeed: Patient is NPO, tubefeed dependent, history aspiration pneumonia, length of need 99 months. Please Follow Up With: Roverto Sadler When: As scheduled. Meaningful Use Info Meaningful Use Meaningful Use Diagnoses (Choose all that apply): None applicable Ischemic Stroke Statin Dosing Therapy Reference: STATIN DOSE THERAPY REFERENCE: * Patients > 75 years receive moderate or high dose statin therapy. * Patients 75 years or YOUNGER should receive HIGH intensity statin dose unless contraindicated. You will be required to document reason for non-treatment if statin daily dose does not meet guidelines. HIGH DOSE STATIN THERAPY DAILY Atorvastatin > than or = to 40 mg Rosuvastatin > than or = to 20 mg Amlodipine + Atorvastatin > than or = to 2.5/40 mg Ezetimibe + Simvastatin 10/80 mg Simvastatin 80mg Discharge Plan Admission Admit Date/Time: 06/30/24 18:00 Primary Reason for Your Visit: Debility. Attending Provider: Bony Marie Chi Primary Care Provider: Tru Fraser Instructions Additional Instructions / Restrictions: Discharge home with 07/20/2024, [facility] PT/OT/ST/SN/[facility], Hospital bed with gel overlay. Hospital Bed: Patient requires a hospital bed due to needing frequent changes in position to alleviate pain, prevent ongoing pressure areas, assist in healing of current pressure areas, prevent aspiration or due to respiratory condition. DX: Aspiration pneumonia, dysphagia, status post PEG tube, tube feed dependent. Tubefeed: Patient is NPO, tubefeed dependent, history aspiration pneumonia, length of need 99 months. Discharge Orders/Prescriptions Prescriptions: New sennosides-docusate sodium [Stimulant Laxative Plus] 8.6-50 mg Tablet 1 tab G-tube BID 30 Days Qty: 60 0RF potassium chloride 20 mEq/15 mL Liquid 20 meq G-tube BID 30 Days Qty: 900 0RF ferrous sulfate 300 mg (60 mg iron)/5 mL Liquid 300 mg G-tube DAILY 30 Days Qty: 150 0RF simethicone [Infants Simethicone] 40 mg/0.6 mL Drops,Suspension 80 mg G-tube 4X/DAY 30 Days Qty: 144 0RF Sore Throat (phenol) 1.4 % Aerosol,[place] 1 spray mucous membrane Q2H PRN (Reason: sore throat) 30 Days Qty: 300 0RF cholecalciferol (vitamin D3) 25 mcg (1,000 unit) Tablet 25 mcg G-tube DAILY 30 Days Qty: 30 0RF acetaminophen 650 mg/20.3 mL Solution 650 mg G-tube Q4H PRN PRN (Reason: Pain Score 1-10) 30 Days Qty: 1000 0RF Jevity 1.5 Mark 0.06 gram-1.5 kcal/mL Liquid 220 ml G-tube 0600,1000,1400,1800,2200 30 Days Qty: 75039 0RF Continued polyethylene glycol 3350 [Miralax] 17 gram/dose powder 17 g PO DAILY PRN (Reason: constipation) 30 Days Qty: 510 0RF Discontinued ergocalciferol (vitamin D2) 1,250 mcg (50,000 unit) capsule 1,250 mcg feeding tube QWEEK ferrous sulfate 300 mg (60 mg iron)/5 mL liquid 300 mg feeding tube DAILY fluticasone propionate 50 mcg/actuation spray,suspension 2 spray intranasal DAILY PRN (Reason: nasal congestion) Rx Instructions: administer into each nostril ipratropium-albuterol 0.5 mg-3 mg(2.5 mg base)/3 mL solution for nebulization 3 ml inhalation TID PRN (Reason: shortness of breath or wheezing) miconazole nitrate 2 % powder 1 applic topical DAILY oxycodone 5 mg tablet 5 mg feeding tube Q6H PRN (Reason: pain (scale score 7-10)) Throat [place] 1.4 % aerosol,spray 1 spray mucous membrane Q2H PRN (Reason: sore throat) potassium chloride [Klor-Con M20] 20 mEq tablet,ER particles/crystals 20 meq PO BID Rx Instructions: Via PEG TUBE pregabalin 75 mg capsule 75 mg feeding tube BID Referrals / Follow Up: Tru Fraser DO [Primary Care Provider] - Disposition Disposition (needs filled in before D/C Order can be placed): Home Health Service
[2024-07-20] MEDS: Jevity 1.5. 1,000 ML Bottle 220 ML GT ×2 (14:10→14:30)
[2024-07-20] MEDS: Simethicone 40MG/0.6ML Bottle 80 MG GT (14:12)
== END 2024-07-20 15:50 | disposition home health service (06) | DRG 177 ==
PROVIDERS: Admitting Provider Family Medicine Geriatric Medicine; PCP Family Medicine; Referring Provider Family Medicine Geriatric Medicine; Visit Provider Family Medicine Geriatric Medicine
DX: J69.0 Pneumonitis due to inhalation of food and vomit (principal); E43 Unspecified severe protein-calorie malnutrition; E87.1 Hypo-osmolality and hyponatremia; Z68.1 Body mass index [BMI] 19.9 or less, adult; D53.1 Other megaloblastic anemias, not elsewhere classified; L89.622 Pressure ulcer of left heel, stage 2; R62.7 Adult failure to thrive; I10 Essential (primary) hypertension; F32.A Depression, unspecified; Z93.1 Gastrostomy status; E55.9 Vitamin D deficiency, unspecified; J02.9 Acute pharyngitis, unspecified; D50.9 Iron deficiency anemia, unspecified; E87.6 Hypokalemia; B35.4 Tinea corporis; Z87.891 Personal history of nicotine dependence; Z66 Do not resuscitate; Z79.899 Other long term (current) drug therapy
CPT/HCPCS: 36415; 36430; 74018; 74230; 80048; 82962; 85025; 86850; 86900; 86901; 86920; 86922; 87426; 87811; 92526; 92610; 92611; 94002; 94003; 94640; 94668; 94762; 97110; 97112; 97116; 97162; 97166; 97530; 97535; 97802; 97803; J7030; P9016; A4216; J1940

== ENCOUNTER 2024-08-18 13:45 | Outpatient (RCR) | payer OTHER, SELFPAY ==
[2024-08-04 13:10] VITALS: BP 137/72; PULSE 79; RESP 18; TEMP 36; BMI 18.0
--- NOTE | 2024-08-04 14:20 | HP.PCM_ITS ---
History of Present Illness Date of Service: 08/04/24 Chief Complaint: Left heel pressure ulceration History of Wound: Mr. Franco Gimenez is a 59-year-old male who presents to the wound center today for ongoing evaluation and management of a left heel pressure ulceration. He is accompanied to his appointment today by his who helps with his care. He has been recently discharged from the TCU where he was recovering from a prolonged hospitalization at [facility] during which he initially developed this heel ulceration. He also has a hospital bed now at home. He reports that he does have foam offloading boots but does not feel like they really help. He does try to be more mobile now that he is home as well. They have been covering with a dry dressing. He reports that his PCP prescribed some kind of topical ointment but they are not sure exactly what or whether this is an antimicrobial or otherwise. They have not yet received it, sounds like it may need prior authorization. He is not diabetic. He is a former smoker. His medical history is otherwise significant for tongue cancer in 2013. He currently has a PEG tube and is dependent on tube feed primarily though can take some liquids by mouth. He is on Eliquis, he has not noted any adverse bleeding. He denies any known history of peripheral arterial disease, VTE, or prior vascular surgical interventions. [facility] Medical History (Updated 08/04/24 @ 17:02 by LEV Lake) DDD (degenerative disc disease), thoracic Squamous cell carcinoma of tongue Pulmonary embolism Megaloblastic anemia DDD (degenerative disc disease), lumbar DVT (deep venous thrombosis) HTN (hypertension) History of smoking Cervical spinal stenosis Home Medications ?Medication ?Instructions ?Recorded ?Last Taken ?Type acetaminophen 650 mg/20.3 mL oral 650 mg (20.3 mL) G-tube Q4H PRN 07/20/24 Unknown Rx solution PRN Pain Score 1-10 30 days #1,000 mL cholecalciferol (vitamin D3) 25 25 mcg G-tube DAILY 30 days #30 07/20/24 Unknown Rx mcg (1,000 unit) tablet tabs ferrous sulfate 300 mg (60 mg 300 mg (5 mL) G-tube DAILY 30 days 07/20/24 Unknown Rx iron)/5 mL oral liquid #150 mL lactose-reduced food with fiber 220 ml G-tube 07/20/24 Unknown Rx 0.06 gram-1.5 kcal/mL oral liquid 0600,1000,1400,1800,2200 30 days (Jevity 1.5 Mark) #20,000 mL phenol 1.4 % mucosal aerosol spray 1 spray mucous membrane Q2H PRN 07/20/24 Unknown Rx (Sore Throat (phenol)) sore throat 30 days #300 mL polyethylene glycol 3350 17 17 g PO DAILY PRN constipation 30 07/20/24 Unknown Rx gram/dose oral powder (Miralax) days #510 grams potassium chloride 20 mEq/15 mL 20 meq (15 mL) G-tube BID 30 days 07/20/24 Unknown Rx oral liquid #900 mL sennosides 8.6 mg-docusate sodium 1 tab G-tube BID 30 days #60 tabs 07/20/24 Un known Rx 50 mg tablet (Stimulant Laxative Plus) simethicone 40 mg/0.6 mL oral 80 mg (1.2 mL) G-tube 4X/DAY 30 07/20/24 Unknown Rx drops,suspension (Infants days #144 mL Simethicone) Allergy/AdvReac Type Severity Reaction Status Date / Time No Known Allergies Allergy Verified 06/30/24 17:55 Family History (Updated 06/30/24 @ 18:[address] Bony Marie MD) Mother Hypertension Father CAD (coronary artery disease) Hypertension Parkinson disease Brother Hypertension Surgical History (Updated 06/30/24 @ 18:[address] Bony Marie MD) Lutz teeth extracted History of glossectomy S/P percutaneous endoscopic gastrostomy (PEG) tube placement History of tracheostomy Social History (Updated 06/30/24 @ 18:[address] Bony Marie MD) household members: spouse Smoking Status: Former smoker alcohol intake: never substance use type: does not use Vital Signs Vital Signs Vital Signs: 08/04/24 13:10 Temperature 96.8 F L Temperature Source Temporal Pulse Rate 79 Respiratory Rate 18 Blood Pressure 137/72 H Blood Pressure Mean 93 Blood Pressure Source Monitor Blood Pressure Position Sitting Blood Pressure Location Left Arm Oxygen Delivery Method Room Air Weight Weight: 133 lb Body Mass Index (BMI) 18.0 Physical Exam Const alert, oriented x3 and no apparent distress General Appearance: cooperative and comfortable HEENT head/scalp atraumatic, hearing grossly normal bilaterally, external ears normal and external nose normal Eyes General Eye: normal appearance of both eyes Resp normal respiratory effort, no retractions and no use of accessory muscles Effort and Inspection: able to speak in complete sentences Cardio regular rate Extremity no clubbing, cyanosis or edema Peripheral Pulses: Yes pulses 2+ throughout Skin Wounds: wounds noted Wound Narrative: Left heel stage II pressure ulceration, relatively superficial with pink wound base and minimal slough. There is no surrounding erythema, focal swelling, foul odor, significant drainage. Neuro oriented x3, moves all extremities and no focal motor deficits Speech: speech normal Psych mental status grossly normal Attitude: calm and engaged Activity / Motor Behavior: appropriate eye contact Speech: normal speech Debridement Note Debridement Note Wound debrided: Left heel Laterality: Left Type of Debridement: Excisional debridement Anesthesia Used: 5% Lidocaine Gel Depth: Down to and including healthy tissue and in the subcutaneous layer Percentage of wound debrided: 100 Instrument Used: 5mm curette Tissue Removed: Slough Severity: Fat Layer Exposed Amount of bleeding with debridement: Mild Bleeding Controlled with: Pressure Patient tolerated procedure: Patient tolerated procedure well Post-Debridement Measurements and Additional Note: Post-Debridement Measurements/Treatment - Nurse 1 - General Ulcer Assessment Start: 08/04/24 13:10 Freq: Status: Active Protocol: [email or web address] Activity Type Activity Date Activity User E-sign Co-sign Detail Recorded Client Recorded Date Recorded By Document 08/04/24 13:10 DL [id number] 08/04/24 13:21 DL 08/04/24 13:10 - Today's Visit Information Type of service Initial Visit Arrival Mode Wheelchair Transfer Assistance Manual Patient Identification Verified (Name & Yes ) Patient Requires Transmission-Based No Precautions Height and Weight Height 6 ft Weight 133 lb Weight in Pounds 133.0 lbs Weight Measurement Method Estimated by Patient Body Mass Index (BMI) 18.0 BMI Classification Underweight BSA - Austyn 1.79 Vital Signs Temperature (97.8 F-99.1 F) 96.8 F L Temperature Source Temporal Pulse Rate (60-100) 79 Pulse Location Monitor Respiratory Rate (12-18) 18 Respiratory rate source Observation Oxygen Delivery Method Room Air Blood Pressure (90/60-120/80) 137/72 H Blood Pressure Mean 93 Source Monitor Position Sitting Blood Pressure Location Left Arm History Since Last Visit- (Skip if this is Patient's initial visit) Left Footwear Regular Shoe Right Footwear Regular Shoe Pain Scale: 0-10 Numeric Is Patient Pain Free? Yes Lower Extremity Assessment/ Foot Assessment/ Toe Nail Assessment Right -Posterior Tibial Palpable Yes -Dorsalis Pedis Palpable Yes -Extremity Color Normal -Hair Growth on Legs Yes -Hair Growth on Toes Yes -Thick No -Discolored No -Deformed No -Improper Length & Hygeine No Left -Posterior Tibial Palpable Yes -Dorsalis Pedis Palpable Yes -Extremity Color Normal -Hair Growth on Legs Yes -Hair Growth on Toes Yes -Temperature of Extremity Cool -Capillary Refill Less than 3 Seconds -Thick No -Discolored No -Deformed No -Improper Length & Hygeine No Teaching Assessment Preferences Verbal,Written, Demonstration Barriers to Learning None Readiness To Learn Excellent Willingness to Engage in Self Management High Activies Readiness to Engage in Self Management High Activities Anxiety Level Calm Cooperation Cooperative Perception Coherent Interest in Health Problem Asks Questions Education Importance Acknowledges Need Does Patient Smoke tobacco or other Yes substances Smoking Status Former smoker Is Patient Diabetic No Functional Assessment Recent Decline in Ability to Perform Transferring Culture/Episcopalian/Convict Guard Cultural/Episcopalian Needs that may affect No Treatment Plan Would you allow our hospital security strategist to No meet you for the purpose of spiritual/ emotional support? Convict Guard to contact place of taoism No WC - Nurse 1 - General Ulcer Measurement Start: 08/04/24 13:10 Freq: Status: Active Protocol: Activity Type Activity Date Activity User E-sign Co-sign Detail Recorded Client Recorded Date Recorded By Document 08/04/24 13:10 DL [id number] 08/04/24 13:21 DL 08/04/24 13:10 Wound Center Nurse 1 #1 LT HEEL -Current Size (cm) - Length 2 -Current Size (cm) - Width 2.1 -Current Size (cm) - Depth 0.1 -Total Square Cm 4.2 -Date of Last Picture (Recall this 08/04/24 field) -Exudate Amt Medium -Exudate Type Serosanguineous -Wound Margin Distinct, Outline Attached -Granulation Amt Medium (34-66%) -Granulation Quality [place] -Necrosis Amt Small (1-33%) -Necrotic Tissue Type Adherent Slough -Texture (Zita-wound Skin Appearance) Assessed -Moisture (Zita-wound Skin Appearance) Assessed, Maceration -Color (Zita-wound Skin Appearance) Assessed -Temperature (Zita-wound Skin No Abnormality Appearance) (Pt Warm) -Tenderness on Palpation (Zita-wound No Skin Appearance) -Ulcer Cleansing Rinsed/ Irrigated with Saline -Foul Odor after Cleansing No -Anesthetic Used 5% Lidocaine Gel - Nurse 2 - General Ulcer CM Notes Start: 08/04/24 13:10 Freq: Status: Active Protocol: Activity Type Activity Date Activity User E-sign Co-sign Detail Recorded Client Recorded Date Recorded By Document 08/04/24 13:35 [id number] 08/04/24 13:44 08/04/24 13:35 Wound Center Nurse 2 -Time 13:36 -Correct Patient Yes -Correct Side, Site, Position Yes -Correct Procedure Yes -Procedure Performed Yes -Type of Procedure Debridement -Clinical Debridement Subcutaneous -Tissue Removed Subcutaneous -Post Debridement (cm) - Length 2.0 -Post Debridement (cm) - Width 2.4 -Post Debridement (cm) - Depth 0.2 -Total Square (Post) (cm) 4.80 -Area of Debridement (cm) - Length 2.0 -Area of Debridement (cm) - Width 2.4 -Total Square (Area) (cm) 4.80 -Tunneling No -Undermining/Tunneling No -Circular Undermining No -Wound/Ulcer Outcome Not Healed -Ulcer Cleansing Rinsed/ Irrigated with Saline -Foul Odor after Cleansing No -Bioengineered Tissue No -Bleeding Controlled with Pressure -Treatment Response Procedure Tolerated Well -Debridement - Subq, 1st 20sq cm Yes Pain Scale: 0-10 Numeric Is Patient Pain Free? Yes [facility] Nurse 3 - General Ulcer D/C NN Start: 08/04/24 13:10 Freq: Status: Active Protocol: Activity Type Activity Date Activity User E-sign Co-sign Detail Recorded Client Recorded Date Recorded By Document 08/04/24 14:00 [id number] 08/04/24 14:03 08/04/24 14:00 Wound Care Center Nurse 3 #1 LT HEEL -Primary Dressing Applied Promogran Milla Matter -Primary Dressing Covered/Secured with Dry Gauze & Roll Gauze, Secured with Tape -Promogran Milla Matter 1 Pain Scale: 0-10 Numeric Is Patient Pain Free? Yes Charges/Coding Visit Charges Office Visits / Consults: [id number] OV L3 New 30min Procedures Integumentary 111xxx-113xx: 90738 Masha subq tissue 20 sq cm/< Assessment/Plan Assessment/Plan (1) Pressure ulcer of left heel, stage 2: CODE(S): L89.622 - Pressure ulcer of left heel, stage 2 PLAN: Plan For wound care, I advise washing the foot with antibacterial soap and water and patting to dry then apply lightly moistened Milla followed by fluffy dry dressing/nurses hat. Change dressings at least once daily, more often as needed if they become soiled or soaked. He is instructed not to submerge or soak his foot as this could encourage infection. We discussed the importance of offloading pressure to this area. I advised that he float his heel as much as possible, particularly when sleeping. I would prefer them not to start the topical ointment until we know what this is. Whenever they do receive it I asked that either bring it to their next appointment or call and let me know so we can make sure there will be any issues with this in addition to our wound care plan as above. He will return in 1 week, sooner as needed.
--- NOTE | 2024-08-08 09:20 | WC ---
PHOTO 08/04/24 LEFT HEEL
[2024-08-11 14:01] VITALS: BP 110/68; PULSE 88; RESP 16; TEMP 35.8; BMI 18.0
--- NOTE | 2024-08-11 15:17 | PCM.WC.PN ---
History of Present Illness Date of Service: 08/11/24 Chief Complaint: Left heel pressure ulceration History of Wound: Mr. Franco Gimenez is a 59-year-old male who presents to the wound center today for ongoing evaluation and management of a left heel pressure ulceration. He is accompanied to his appointment today by his who helps with his care. He has been recently discharged from the TCU where he was recovering from a prolonged hospitalization at [facility] during which he initially developed this heel ulceration. He also has a hospital bed now at home. He reports that he does have foam offloading boots but does not feel like they really help. He does try to be more mobile now that he is home as well. They have been covering with a dry dressing. He reports that his PCP prescribed some kind of topical ointment but they are not sure exactly what or whether this is an antimicrobial or otherwise. They have not yet received it, sounds like it may need prior authorization. He is not diabetic. He is a former smoker. His medical history is otherwise significant for tongue cancer in 2013. He currently has a PEG tube and is dependent on tube feed primarily though can take some liquids by mouth. He is on Eliquis, he has not noted any adverse bleeding. He denies any known history of peripheral arterial disease, VTE, or prior vascular surgical interventions. Subjective Subjective They have been doing well with dressing changes. They did receive the supplies that were ordered. No new concerns this week. Objective Data Objective Data Vital Signs: Vital Signs Temp Pulse Resp BP O2 Del Method 96.5 F L 88 16 110/68 Room Air 08/11/24 14:01 08/11/24 14:01 08/11/24 14:01 08/11/24 14:01 08/11/24 14:01 Oxygen Delivery Method Room Air Weight: 133 lb Body Mass Index (BMI) 18.0 Charges/Coding Procedures Integumentary 111xxx-113xx: [id number] Masha subq tissue 20 sq cm/< Physical Exam Const alert, oriented x3 and no apparent distress General Appearance: cooperative and comfortable HEENT head/scalp atraumatic, hearing grossly normal bilaterally, external ears normal and external nose normal Eyes General Eye: normal appearance of both eyes Resp normal respiratory effort, no retractions and no use of accessory muscles Effort and Inspection: able to speak in complete sentences Cardio regular rate Extremity no clubbing, cyanosis or edema Peripheral Pulses: Yes pulses 2+ throughout Skin Wounds: wounds noted Wound Narrative: Left heel stage II pressure ulceration, relatively superficial with pink wound base and minimal slough. There is no surrounding erythema, focal swelling, foul odor, significant drainage. Neuro oriented x3, moves all extremities and no focal motor deficits Speech: speech normal Psych mental status grossly normal Attitude: calm and engaged Activity / Motor Behavior: appropriate eye contact Speech: normal speech Debridement Note Debridement Note Wound debrided: Left heel Laterality: Left Type of Debridement: Excisional debridement Anesthesia Used: 5% Lidocaine Gel Depth: Down to and including healthy tissue and in the subcutaneous layer Percentage of wound debrided: 100 Instrument Used: 5mm curette Tissue Removed: Slough Severity: Fat Layer Exposed Amount of bleeding with debridement: Mild Bleeding Controlled with: Pressure Patient tolerated procedure: Patient tolerated procedure well Post-Debridement Measurements and Additional Note: Post-Debridement Measurements/Treatment - Nurse 1 - General Ulcer Assessment Start: 08/04/24 13:10 Freq: Status: Active Protocol: KATHERINE Activity Type Activity Date Activity User E-sign Co-sign Detail Recorded Client Recorded Date Recorded By Document 08/04/24 13:10 DL [id number] 08/04/24 13:21 DL Document 08/11/24 14:01 KW [id number] 08/11/24 14:09 KW 08/04/24 08/11/24 13:10 14:01 - Today's Visit Information Type of service Initial Visit Follow-up Visit (Physician/COMMERCIAL LITIGATION ATTORNEY ) Arrival Mode Wheelchair Wheelchair Transfer Assistance Manual Transfer Assist (Other) Patient Identification Verified (Name & Yes Yes ) Patient Requires Transmission-Based No Precautions Height and Weight Height 6 ft Weight 133 lb Weight in Pounds 133.0 lbs Weight Measurement Method Estimated by Patient Body Mass Index (BMI) 18.0 18.0 BMI Classification Underweight Underweight BSA - Austyn 1.79 Vital Signs Temperature (97.8 F-99.1 F) 96.8 F L 96.5 F L Temperature Source Temporal Temporal Pulse Rate (60-100) 79 88 Pulse Location Monitor Monitor Respiratory Rate (12-18) 18 16 Respiratory rate source Observation Observation Oxygen Delivery Method Room Air Room Air Blood Pressure (90/60-120/80) 137/72 H 110/68 Blood Pressure Mean (mm Hg) 93 82 Source Monitor Monitor Position Sitting Sitting Blood Pressure Location Left Arm Right Forearm History Since Last Visit- (Skip if this is Patient's initial visit) Have you changed medications since your No last visit? Any new allergies or adverse reactions No Had a fall/change in ADL's that may No increase risk of falls Signs or symptoms of abuse and/or No neglect since last visit Have you been in the hospital since your No last visit? Has dressing in place as prescribed Yes Has compression in place as prescribed N/A Has offloadiing in place as prescribed N/A Experienced any changes in pain level or No management Left Footwear Regular Shoe Regular Shoe Right Footwear Regular Shoe Regular Shoe Pain Scale: 0-10 Numeric Is Patient Pain Free? Yes Yes Lower Extremity Assessment/ Foot Assessment/ Toe Nail Assessment Right -Posterior Tibial Palpable Yes -Dorsalis Pedis Palpable Yes -Extremity Color Normal -Hair Growth on Legs Yes -Hair Growth on Toes Yes -Thick No -Discolored No -Deformed No -Improper Length & Hygeine No Left -Posterior Tibial Palpable Yes -Dorsalis Pedis Palpable Yes -Extremity Color Normal -Hair Growth on Legs Yes -Hair Growth on Toes Yes -Temperature of Extremity Cool -Capillary Refill Less than 3 Seconds -Thick No -Discolored No -Deformed No -Improper Length & Hygeine No Teaching Assessment Preferences Verbal,Written, Demonstration Barriers to Learning None Readiness To Learn Excellent Willingness to Engage in Self Management High Activies Readiness to Engage in Self Management High Activities Anxiety Level Calm Cooperation Cooperative Perception Coherent Interest in Health Problem Asks Questions Education Importance Acknowledges Need Does Patient Smoke tobacco or other Yes substances Smoking Status Former smoker Is Patient Diabetic No Functional Assessment Recent Decline in Ability to Perform Transferring Culture/Pentecostalism/Rug Hooker Hand Cultural/Pentecostalism Needs that may affect No Treatment Plan Would you allow our hospital supervisory investigative specialist to No meet you for the purpose of spiritual/ emotional support? Rug Hooker Hand to contact place of taoism No WC - Nurse 1 - General Ulcer Measurement Start: 08/04/24 13:10 Freq: Status: Active Protocol: Activity Type Activity Date Activity User E-sign Co-sign Detail Recorded Client Recorded Date Recorded By Document 08/04/24 13:10 DL [id number] 08/04/24 13:21 DL Document 08/11/24 14:01 KW [id number] 08/11/24 14:09 KW 08/04/24 08/11/24 13:10 14:01 Wound Center Nurse 1 #1 LT HEEL -Current Size (cm) - Length 2 2 -Current Size (cm) - Width 2.1 1.5 -Current Size (cm) - Depth 0.1 0.1 -Total Square Cm 4.2 3.0 -Date of Last Picture (Recall this 08/04/24 field) -Exudate Amt Medium Small -Exudate Type Serosanguineous Serosanguineous -Wound Margin Distinct, Distinct, Outline Outline Attached Attached -Granulation Amt Medium (34-66%) Medium (34-66%) -Granulation Quality [place] -Necrosis Amt Small (1-33%) Medium (34-66%) -Necrotic Tissue Type Adherent Slough Adherent Slough -Texture (Zita-wound Skin Appearance) Assessed Assessed -Moisture (Zita-wound Skin Appearance) Assessed, Assessed Maceration -Color (Zita-wound Skin Appearance) Assessed Assessed -Temperature (Zita-wound Skin No Abnormality No Abnormality Appearance) (Pt Warm) (Pt Warm) -Tenderness on Palpation (Zita-wound No No Skin Appearance) -Ulcer Cleansing Rinsed/ Rinsed/ Irrigated with Irrigated with Saline Saline -Foul Odor after Cleansing No No -Anesthetic Used 5% Lidocaine 5% Lidocaine Gel Gel WC - Nurse 2 - General Ulcer CM Notes Start: 08/04/24 13:10 Freq: Status: Active Protocol: Activity Type Activity Date Activity User E-sign Co-sign Detail Recorded Client Recorded Date Recorded By Document 08/04/24 13:35 [id number] 08/04/24 13:44 Document 08/11/24 14:13 [id number] 08/11/24 14:15 08/04/24 08/11/24 13:35 14:13 Wound Center Nurse 2 #1 LT HEEL -Time 13:36 14:14 -Correct Patient Yes Yes -Correct Side, Site, Position Yes Yes -Correct Procedure Yes Yes -Procedure Performed Yes Yes -Type of Procedure Debridement Debridement -Clinical Debridement Subcutaneous Subcutaneous -Tissue Removed Subcutaneous Subcutaneous -Post Debridement (cm) - Length 2.0 2.0 -Post Debridement (cm) - Width 2.4 2.6 -Post Debridement (cm) - Depth 0.2 0.1 -Total Square (Post) (cm) 4.80 5.20 -Area of Debridement (cm) - Length 2.0 2.0 -Area of Debridement (cm) - Width 2.4 2.6 -Total Square (Area) (cm) 4.80 5.20 -Tunneling No No -Undermining/Tunneling No No -Circular Undermining No No -Wound/Ulcer Outcome Not Healed Not Healed -Ulcer Cleansing Rinsed/ Rinsed/ Irrigated with Irrigated with Saline Saline -Foul Odor after Cleansing No No -Bioengineered Tissue No No -Bleeding Controlled with Pressure Pressure -Treatment Response Procedure Procedure Tolerated Well Tolerated Well -Debridement - Subq, 1st 20sq cm Yes Yes Pain Scale: 0-10 Numeric Is Patient Pain Free? Yes Yes - Nurse 3 - General Ulcer D/C NN Start: 08/04/24 13:10 Freq: Status: Active Protocol: Activity Type Activity Date Activity User E-sign Co-sign Detail Recorded Client Recorded Date Recorded By Document 08/04/24 14:00 KW [id number] 08/04/24 14:03 KW Document 08/11/24 14:24 DL [id number] 08/11/24 14:26 DL 08/04/24 08/11/24 14:00 14:24 Wound Care Center Nurse 3 #1 LT HEEL -Ulcer Cleansing Rinsed/ Irrigated with Saline -Foul Odor after Cleansing No -Primary Dressing Applied Promogran Promogran Milla Matter Milla Matter -Primary Dressing Covered/Secured with Dry Gauze & Dry Gauze & Roll Gauze, Roll Gauze, Secured with Secured with Tape Tape -Other Covering Nurses hat -Promogran Milla Matter 1 1 Treatment Response Procedure Tolerated Well Pain Scale: 0-10 Numeric Is Patient Pain Free? Yes Yes - Visit Discharge Discharge Condition Stable Ambulatory Status Ambulatory Transportation Private Auto Facility Type Home Health Orders Sent Yes Assessment/Plan Assessment/Plan (1) Pressure ulcer of left heel, stage 2: CODE(S): L89.622 - Pressure ulcer of left heel, stage 2 PLAN: Plan Wound stable in size this week. No signs/symptoms of infection. For wound care, continue washing the foot with antibacterial soap and water and patting to dry then apply lightly moistened Milal followed by fluffy dry dressing/nurses hat. Change dressings at least once daily, more often as needed if they become soiled or soaked. He is instructed not to submerge or soak his foot as this could encourage infection. We discussed the importance of offloading pressure to this area. I advised that he float his heel as much as possible, particularly when sleeping. He will return in 1 week, sooner as needed.
[2024-08-18 13:55] VITALS: BP 135/77; PULSE 77; RESP 18; TEMP 36.2; BMI 18.0
--- NOTE | 2024-08-18 17:36 | PCM.WC.PN ---
History of Present Illness Date of Service: 08/18/24 Chief Complaint: Left heel pressure ulceration History of Wound: Mr. Franco Gimenez is a 59-year-old male who presents to the wound center today for ongoing evaluation and management of a left heel pressure ulceration. He is accompanied to his appointment today by his who helps with his care. He has been recently discharged from the TCU where he was recovering from a prolonged hospitalization at [facility] during which he initially developed this heel ulceration. He also has a hospital bed now at home. He reports that he does have foam offloading boots but does not feel like they really help. He does try to be more mobile now that he is home as well. They have been covering with a dry dressing. He reports that his PCP prescribed some kind of topical ointment but they are not sure exactly what or whether this is an antimicrobial or otherwise. They have not yet received it, sounds like it may need prior authorization. He is not diabetic. He is a former smoker. His medical history is otherwise significant for tongue cancer in 2013. He currently has a PEG tube and is dependent on tube feed primarily though can take some liquids by mouth. He is on Eliquis, he has not noted any adverse bleeding. He denies any known history of peripheral arterial disease, VTE, or prior vascular surgical interventions. Subjective Subjective Patient denies any new wounds or new concerns. He denies any nausea, vomiting, fevers, chills, new or worsened drainage/redness/odor from the wound. He is no longer going to have a home health nurse coming out to his home so we will no need to begin ordering the wound care supplies for him. Objective Data Objective Data Vital Signs: Vital Signs Temp Pulse Resp BP O2 Del Method 97.2 F L 77 18 135/77 H Room Air 08/18/24 13:55 08/18/24 13:55 08/18/24 13:55 08/18/24 13:55 08/11/24 14:01 Oxygen Delivery Method Room Air Weight: 133 lb Body Mass Index (BMI) 18.0 Charges/Coding Procedures Integumentary 111xxx-113xx: 40364 Masha subq tissue 20 sq cm/< Physical Exam Const alert, oriented x3 and no apparent distress General Appearance: cooperative and comfortable HEENT head/scalp atraumatic, hearing grossly normal bilaterally, external ears normal and external nose normal Eyes General Eye: normal appearance of both eyes Resp normal respiratory effort, no retractions and no use of accessory muscles Effort and Inspection: able to speak in complete sentences Cardio regular rate Extremity no clubbing, cyanosis or edema Peripheral Pulses: Yes pulses 2+ throughout Skin Wounds: wounds noted Wound Narrative: Left heel stage II pressure ulceration, relatively superficial with pink wound base and minimal slough. There is no surrounding erythema, focal swelling, foul odor, significant drainage. Neuro oriented x3, moves all extremities and no focal motor deficits Speech: speech normal Psych mental status grossly normal Attitude: calm and engaged Activity / Motor Behavior: appropriate eye contact Speech: normal speech Debridement Note Debridement Note Wound debrided: Left heel Laterality: Left Type of Debridement: Excisional debridement Anesthesia Used: 5% Lidocaine Gel Depth: Down to and including healthy tissue and in the subcutaneous layer Percentage of wound debrided: 100 Instrument Used: 5mm curette Tissue Removed: Slough, callus, dried drainage Severity: Fat Layer Exposed Amount of bleeding with debridement: Mild Bleeding Controlled with: Pressure Patient tolerated procedure: Patient tolerated procedure well Post-Debridement Measurements and Additional Note: Post-Debridement Measurements/Treatment - Nurse 1 - General Ulcer Assessment Start: 08/04/24 13:10 Freq: Status: Active Protocol: [email or web address].[email or web address] Activity Type Activity Date Activity User E-sign Co-sign Detail Recorded Client Recorded Date Recorded By Document 08/04/24 13:10 DL [id number] 08/04/24 13:21 DL Document 08/11/24 14:01 KW [id number] 08/11/24 14:09 KW Document 08/18/24 13:55 DL [id number] 08/18/24 13:56 DL 08/04/24 08/11/24 08/18/24 13:10 14:01 13:55 - Today's Visit Information Type of service Initial Visit Follow-up Visit Follow-up Visit (Physician/CAMPUS SAFETY OFFICER (Physician/CAMPUS SAFETY OFFICER ) ) Arrival Mode Wheelchair Wheelchair Ambulatory Transfer Assistance Manual None Transfer Assist (Other) Patient Identification Verified (Name & Yes Yes Yes ) Patient Requires Transmission-Based No No Precautions Height and Weight Height 6 ft Weight 133 lb Weight in Pounds 133.0 lbs Weight Measurement Method Estimated by Patient Body Mass Index (BMI) 18.0 18.0 18.0 BMI Classification Underweight Underweight Underweight BSA - Austyn 1.79 Vital Signs Temperature (97.8 F-99.1 F) 96.8 F L 96.5 F L 97.2 F L Temperature Source Temporal Temporal Temporal Pulse Rate (60-100) 79 88 77 Pulse Location Monitor Monitor Monitor Respiratory Rate (12-18) 18 16 18 Respiratory rate source Observation Observation Observation Oxygen Delivery Method Room Air Room Air Blood Pressure (90/60-120/80) 137/72 H 110/68 135/77 H Blood Pressure Mean (mm Hg) 93 82 96 Source Monitor Monitor Monitor Position Sitting Sitting Blood Pressure Location Left Arm Right Forearm History Since Last Visit- (Skip if this is Patient's initial visit) Have you changed medications since your No No last visit? Any new allergies or adverse reactions No No Had a fall/change in ADL's that may No No increase risk of falls Signs or symptoms of abuse and/or No No neglect since last visit Have you been in the hospital since your No No last visit? Has dressing in place as prescribed Yes Yes Has compression in place as prescribed N/A N/A Has offloadiing in place as prescribed N/A Yes Experienced any changes in pain level or No No management Left Footwear Regular Shoe Regular Shoe Surgical Shoe with pressure relief insole Right Footwear Regular Shoe Regular Shoe Pain Scale: 0-10 Numeric Is Patient Pain Free? Yes Yes Yes Lower Extremity Assessment/ Foot Assessment/ Toe Nail Assessment Right -Posterior Tibial Palpable Yes -Dorsalis Pedis Palpable Yes -Extremity Color Normal -Hair Growth on Legs Yes -Hair Growth on Toes Yes -Thick No -Discolored No -Deformed No -Improper Length & Hygeine No Left -Posterior Tibial Palpable Yes -Dorsalis Pedis Palpable Yes -Extremity Color Normal -Hair Growth on Legs Yes -Hair Growth on Toes Yes -Temperature of Extremity Cool -Capillary Refill Less than 3 Seconds -Thick No -Discolored No -Deformed No -Improper Length & Hygeine No Teaching Assessment Preferences Verbal,Written, Demonstration Barriers to Learning None Readiness To Learn Excellent Willingness to Engage in Self Management High Activies Readiness to Engage in Self Management High Activities Anxiety Level Calm Cooperation Cooperative Perception Coherent Interest in Health Problem Asks Questions Education Importance Acknowledges Need Does Patient Smoke tobacco or other Yes substances Smoking Status Former smoker Is Patient Diabetic No Functional Assessment Recent Decline in Ability to Perform Transferring Culture/Gnosticist/Applications Developer Cultural/Gnosticist Needs that may affect No Treatment Plan Would you allow our hospital pacs administrator to No meet you for the purpose of spiritual/ emotional support? Applications Developer to contact place of buddhist No WC - Nurse 1 - General Ulcer Measurement Start: 08/04/24 13:10 Freq: Status: Active Protocol: Activity Type Activity Date Activity User E-sign Co-sign Detail Recorded Client Recorded Date Recorded By Document 08/04/24 13:10 DL [id number] 08/04/24 13:21 DL Document 08/11/24 14:01 KW [id number] 08/11/24 14:09 KW Document 08/18/24 13:55 DL [id number] 08/18/24 13:56 DL 08/04/24 08/11/24 08/18/24 13:10 14:01 13:55 Wound Center Nurse 1 #1 LT HEEL -Current Size (cm) - Length 2 2 1.8 -Current Size (cm) - Width 2.1 1.5 1.4 -Current Size (cm) - Depth 0.1 0.1 0.1 -Total Square Cm 4.2 3.0 2.52 -Date of Last Picture (Recall this 08/04/24 field) -Exudate Amt Medium Small Medium -Exudate Type Serosanguineous Serosanguineous Serosanguineous -Wound Margin Distinct, Distinct, Distinct, Outline Outline Outline Attached Attached Attached -Granulation Amt Medium (34-66%) Medium (34-66%) Medium (34-66%) -Granulation Quality [place] Pale,[place] -Necrosis Amt Small (1-33%) Medium (34-66%) Medium (34-66%) -Necrotic Tissue Type Adherent Slough Adherent Slough Adherent Slough -Structure Exposed N/A -Texture (Zita-wound Skin Appearance) Assessed Assessed Scarring -Moisture (Zita-wound Skin Appearance) Assessed, Assessed Maceration Maceration -Color (Zita-wound Skin Appearance) Assessed Assessed No Abnormality -Temperature (Zita-wound Skin No Abnormality No Abnormality No Abnormality Appearance) (Pt Warm) (Pt Warm) (Pt Warm) -Tenderness on Palpation (Zita-wound No No Skin Appearance) -Ulcer Cleansing Rinsed/ Rinsed/ Soap and Water Irrigated with Irrigated with Saline Saline -Foul Odor after Cleansing No No No -Anesthetic Used 5% Lidocaine 5% Lidocaine 5% Lidocaine Gel Gel Gel WC - Nurse 2 - General Ulcer CM Notes Start: 08/04/24 13:10 Freq: Status: Active Protocol: Activity Type Activity Date Activity User E-sign Co-sign Detail Recorded Client Recorded Date Recorded By Document 08/04/24 13:35 [id number] 08/04/24 13:44 Document 08/11/24 14:13 [id number] 08/11/24 14:15 Document 08/18/24 14:24 [id number] 08/18/24 14:27 08/04/24 08/11/24 08/18/24 13:35 14:13 14:24 Wound Center Nurse 2 #1 LT HEEL -Time 13:36 14:14 14:24 -Correct Patient Yes Yes Yes -Correct Side, Site, Position Yes Yes Yes -Correct Procedure Yes Yes Yes -Procedure Performed Yes Yes Yes -Type of Procedure Debridement Debridement Debridement -Clinical Debridement Subcutaneous Subcutaneous Subcutaneous -Tissue Removed Subcutaneous Subcutaneous Subcutaneous -Post Debridement (cm) - Length 2.0 2.0 1.7 -Post Debridement (cm) - Width 2.4 2.6 1.7 -Post Debridement (cm) - Depth 0.2 0.1 0.1 -Total Square (Post) (cm) 4.80 5.20 2.89 -Area of Debridement (cm) - Length 2.0 2.0 1.7 -Area of Debridement (cm) - Width 2.4 2.6 1.7 -Total Square (Area) (cm) 4.80 5.20 2.89 -Tunneling No No No -Undermining/Tunneling No No No -Circular Undermining No No No -Wound/Ulcer Outcome Not Healed Not Healed Not Healed -Ulcer Cleansing Rinsed/ Rinsed/ Rinsed/ Irrigated with Irrigated with Irrigated with Saline Saline Saline -Foul Odor after Cleansing No No No -Bioengineered Tissue No No No -Bleeding Controlled with Pressure Pressure Pressure -Treatment Response Procedure Procedure Procedure Tolerated Well Tolerated Well Tolerated Well -Debridement - Subq, 1st 20sq cm Yes Yes Yes Pain Scale: 0-10 Numeric Is Patient Pain Free? Yes Yes Yes - Nurse 3 - General Ulcer D/C NN Start: 08/04/24 13:10 Freq: Status: Active Protocol: Activity Type Activity Date Activity User E-sign Co-sign Detail Recorded Client Recorded Date Recorded By Document 08/04/24 14:00 KW [id number] 08/04/24 14:03 KW Document 08/11/24 14:24 DL [id number] 08/11/24 14:26 DL Document 08/18/24 14:48 KW [id number] 08/18/24 14:48 KW 08/04/24 08/11/24 08/18/24 14:00 14:24 14:48 Wound Care Center Nurse 3 #1 LT HEEL -Ulcer Cleansing Rinsed/ Irrigated with Saline -Foul Odor after Cleansing No -Primary Dressing Applied Promogran Promogran Promogran Milla Matter Milla Matter Milla Matter -Primary Dressing Covered/Secured with Dry Gauze & Dry Gauze & Dry Gauze & Roll Gauze, Roll Gauze, Roll Gauze, Secured with Secured with Secured with Tape Tape Tape -Other Covering Nurses hat -Promogran Milla Matter 1 1 1 Treatment Response Procedure Tolerated Well Pain Scale: 0-10 Numeric Is Patient Pain Free? Yes Yes Yes WC - Visit Discharge Discharge Condition Stable Ambulatory Status Ambulatory Transportation Private [facility] Facility Type Home Health Orders Sent Yes Assessment/Plan Assessment/Plan (1) Pressure ulcer of left heel, stage 2: CODE(S): L89.622 - Pressure ulcer of left heel, stage 2 PLAN: Plan Wound improved in size this week. No signs/symptoms of infection. Nurse case making machine operator will send new supply order. For wound care, continue washing the foot with antibacterial soap and water and patting to dry then apply lightly moistened Milla followed by fluffy dry dressing/nurses hat. Change dressings at least once daily, more often as needed if they become soiled or soaked. He is instructed not to submerge or soak his foot as this could encourage infection. We discussed the importance of offloading pressure to this area. I advised that he float his heel as much as possible, particularly when sleeping. Next week is Thanksgiving so I will see him back in 2 weeks.
== END 2024-08-27 23:59 | disposition home or self-care (01) ==
LOC: WC 13:45
PROVIDERS: PCP Family Medicine; Referring Provider Family Medicine; Visit Provider Physician Assistant
DX: L89.622 Pressure ulcer of left heel, stage 2 (principal); Z93.1 Gastrostomy status; I10 Essential (primary) hypertension; Z87.891 Personal history of nicotine dependence; D53.1 Other megaloblastic anemias, not elsewhere classified; Z85.810 Personal history of malignant neoplasm of tongue; Z86.711 Personal history of pulmonary embolism; Z79.01 Long term (current) use of anticoagulants; Z86.718 Personal history of other venous thrombosis and embolism; Z79.899 Other long term (current) drug therapy
CPT/HCPCS: 11042; 99213; G0463

== ENCOUNTER 2024-09-22 14:15 | Outpatient (RCR) | payer OTHER, SELFPAY ==
[2024-08-28 00:54] VITALS: BP 135/77; PULSE 77; RESP 18; TEMP 36.2; BMI 18.0
[2024-09-08 14:10] VITALS: BP 109/73; PULSE 88; RESP 18; TEMP 36; BMI 18.0
--- NOTE | 2024-09-08 14:50 | PN.PCM_ITS ---
History of Present Illness Date of Service: 09/08/24 Chief Complaint: Left heel pressure ulceration History of Wound: Mr. Franco Gimenez is a 59-year-old male who presents to the wound center today for ongoing evaluation and management of a left heel pressure ulceration. He is accompanied to his appointment today by his who helps with his care. He has been recently discharged from the TCU where he was recovering from a prolonged hospitalization at [facility] during which he initially developed this heel ulceration. He also has a hospital bed now at home. He reports that he does have foam offloading boots but does not feel like they really help. He does try to be more mobile now that he is home as well. They have been covering with a dry dressing. He reports that his PCP prescribed some kind of topical ointment but they are not sure exactly what or whether this is an antimicrobial or otherwise. They have not yet received it, sounds like it may need prior authorization. He is not diabetic. He is a former smoker. His medical history is otherwise significant for tongue cancer in 2013. He currently has a PEG tube and is dependent on tube feed primarily though can take some liquids by mouth. He is on Eliquis, he has not noted any adverse bleeding. He denies any known history of peripheral arterial disease, VTE, or prior vascular surgical interventions. Subjective Subjective Patient denies any new wounds or new concerns. He denies any nausea, vomiting, fevers, chills, new or worsened drainage/redness/odor from the wound. They are almost out of supplies. Objective Data Objective Data Vital Signs: Vital Signs Temp Pulse Resp BP O2 Del Method 96.8 F L 88 18 109/73 Room Air 09/08/24 14:10 09/08/24 14:10 09/08/24 14:10 09/08/24 14:10 09/08/24 14:10 Oxygen Delivery Method Room Air Weight: 133 lb Body Mass Index (BMI) 18.0 Charges/Coding Procedures Integumentary 111xxx-113xx: 35341 Masha subq tissue 20 sq cm/< Physical Exam Const alert, oriented x3 and no apparent distress General Appearance: cooperative and comfortable HEENT head/scalp atraumatic, hearing grossly normal bilaterally, external ears normal and external nose normal Eyes General Eye: normal appearance of both eyes Resp normal respiratory effort, no retractions and no use of accessory muscles Effort and Inspection: able to speak in complete sentences Cardio regular rate Extremity no clubbing, cyanosis or edema Peripheral Pulses: Yes pulses 2+ throughout Skin Wounds: wounds noted Wound Narrative: Left heel stage II pressure ulceration, relatively superficial with pink wound base and minimal slough. There is no surrounding erythema, focal swelling, foul odor, significant drainage. Improving in size. Neuro oriented x3, moves all extremities and no focal motor deficits Speech: speech normal Psych mental status grossly normal Attitude: calm and engaged Activity / Motor Behavior: appropriate eye contact Speech: normal speech Debridement Note Debridement Note Wound debrided: Left heel Laterality: Left Type of Debridement: Excisional debridement Anesthesia Used: 5% Lidocaine Gel Depth: Down to and including healthy tissue and in the subcutaneous layer Percentage of wound debrided: 100 Instrument Used: 5mm curette Tissue Removed: Slough, callus, dried drainage Severity: Fat Layer Exposed Amount of bleeding with debridement: Mild Bleeding Controlled with: Pressure Patient tolerated procedure: Patient tolerated procedure well Post-Debridement Measurements and Additional Note: Post-Debridement Measurements/Treatment - Nurse 1 - General Ulcer Assessment Start: 09/08/24 14:10 Freq: Status: Active Protocol: [email or web address].MICHEL Activity Type Activity Date Activity User E-sign Co-sign Detail Recorded Client Recorded Date Recorded By Document 09/08/24 14:10 [id number] 09/08/24 14:18 09/08/24 14:10 - Today's Visit Information Type of service Follow-up Visit (Physician/HEMSTITCHER ) Arrival Mode Wheelchair Accompanied by Patient Identification Verified (Name & Yes ) Height and Weight Body Mass Index (BMI) 18.0 BMI Classification Underweight Vital Signs Temperature (97.8 F-99.1 F) 96.8 F L Temperature Source Temporal Pulse Rate (60-100) 88 Pulse Location Monitor Respiratory Rate (12-18) 18 Respiratory rate source Observation Oxygen Delivery Method Room Air Blood Pressure (90/60-120/80) 109/73 Blood Pressure Mean (mm Hg) 85 Source Monitor Position Semi-Fowlers Blood Pressure Location Left Arm History Since Last Visit- (Skip if this is Patient's initial visit) Have you changed medications since your No last visit? Any new allergies or adverse reactions No Had a fall/change in ADL's that may No increase risk of falls Signs or symptoms of abuse and/or No neglect since last visit Have you been in the hospital since your No last visit? Has dressing in place as prescribed Yes Has compression in place as prescribed Yes Has offloadiing in place as prescribed Yes Experienced any changes in pain level or No management Left Footwear Surgical Shoe with pressure relief insole Right Footwear Regular Shoe Pain Scale: 0-10 Numeric Is Patient Pain Free? Yes WC - Nurse 1 - General Ulcer Measurement Start: 09/08/24 14:10 Freq: Status: Active Protocol: Activity Type Activity Date Activity User E-sign Co-sign Detail Recorded Client Recorded Date Recorded By Document 09/08/24 14:10 [id number] 09/08/24 14:18 09/08/24 14:10 Wound Center Nurse 1 #1 LT HEEL -Current Size (cm) - Length 1 -Current Size (cm) - Width 0.7 -Current Size (cm) - Depth 0.1 -Total Square Cm 0.7 -Date of Last Picture (Recall this 09/08/24 field) -Exudate Amt Small -Exudate Type Serosanguineous -Wound Margin Distinct, Outline Attached -Granulation Amt Large (67-100%) -Granulation Quality Red -Necrosis Amt Small (1-33%) -Necrotic Tissue Type Adherent Slough -Texture (Zita-wound Skin Appearance) Assessed -Moisture (Zita-wound Skin Appearance) Assessed, Maceration,Dry/ Scaly -Color (Zita-wound Skin Appearance) Assessed -Temperature (Zita-wound Skin No Abnormality Appearance) (Pt Warm) -Tenderness on Palpation (Zita-wound No Skin Appearance) -Ulcer Cleansing Rinsed/ Irrigated with Saline -Anesthetic Used 5% Lidocaine Gel - Nurse 2 - General Ulcer CM Notes Start: 09/08/24 14:10 Freq: Status: Active Protocol: Activity Type Activity Date Activity User E-sign Co-sign Detail Recorded Client Recorded Date Recorded By Document 09/08/24 14:23 [id number] 09/08/24 14:28 09/08/24 14:23 Wound Center Nurse 2 -Time 14:23 -Correct Patient Yes -Correct Side, Site, Position Yes -Correct Procedure Yes -Procedure Performed Yes -Type of Procedure Debridement -Clinical Debridement Subcutaneous -Tissue Removed Subcutaneous -Post Debridement (cm) - Length 1.1 -Post Debridement (cm) - Width 0.9 -Post Debridement (cm) - Depth 0.1 -Total Square (Post) (cm) 0.99 -Area of Debridement (cm) - Length 1.1 -Area of Debridement (cm) - Width 1.9 -Total Square (Area) (cm) 2.09 -Tunneling No -Undermining/Tunneling No -Circular Undermining No -Wound/Ulcer Outcome Not Healed -Ulcer Cleansing Rinsed/ Irrigated with Saline -Foul Odor after Cleansing No -Bioengineered Tissue No -Bleeding Controlled with Pressure -Treatment Response Procedure Tolerated Well -Debridement - Subq, 1st 20sq cm Yes Pain Scale: 0-10 Numeric Is Patient Pain Free? Yes - Nurse 3 - General Ulcer D/C NN Start: 09/08/24 14:10 Freq: Status: Active Protocol: Activity Type Activity Date Activity User E-sign Co-sign Detail Recorded Client Recorded Date Recorded By Document 09/08/24 14:38 [facility] [id number] 09/08/24 14:39 [facility] 09/08/24 14:38 Wound Care Center Nurse 3 #1 LT HEEL -Ulcer Cleansing Rinsed/ Irrigated with Saline -Foul Odor after Cleansing No -Primary Dressing Applied Promogran Milla Matter -Other Dressing heel hat -Primary Dressing Covered/Secured with Dry Gauze & Roll Gauze, Secured with Tape -Promogran Milla Matter 2 Treatment Response Procedure Tolerated Well Pain Scale: 0-10 Numeric Is Patient Pain Free? Yes - Visit Discharge Discharge Condition Stable Ambulatory Status Wheelchair Transportation Private Auto Accompanied by Assessment/Plan Assessment/Plan (1) Pressure ulcer of left heel, stage 2: CODE(S): L89.622 - Pressure ulcer of left heel, stage 2 PLAN: Plan Wound improved in size this week. No signs/symptoms of infection. Will be able to refill supply order next week. Advised they can obtain supplies at [place] from [facility] retail pharmacy if they run out before this. For wound care, continue washing the foot with antibacterial soap and water and patting to dry then apply lightly moistened Milla followed by fluffy dry dressing/nurses hat. Change dressings at least once daily, more often as needed if they become soiled or soaked. He is instructed not to submerge or soak his foot as this could encourage infection. We discussed the importance of offloading pressure to this area. I advised that he float his heel as much as possible, particularly when sleeping. I will see him back in 2 weeks.
--- NOTE | 2024-09-13 11:42 | WC ---
PHOTO 09/08/24 RIGHT HEEL
[2024-09-22 14:19] VITALS: BP 133/64; PULSE 70; RESP 18; TEMP 36.1; BMI 18.0
--- NOTE | 2024-09-22 15:21 | PN.PCM_ITS ---
History of Present Illness Date of Service: 09/22/24 Chief Complaint: Left heel pressure ulceration History of Wound: Mr. Franco Gimenez is a 59-year-old male who presents to the wound center today for ongoing evaluation and management of a left heel pressure ulceration. He is accompanied to his appointment today by his who helps with his care. He has been recently discharged from the [facility] where he was recovering from a prolonged hospitalization at [facility] during which he initially developed this heel ulceration. He also has a hospital bed now at home. He reports that he does have foam offloading boots but does not feel like they really help. He does try to be more mobile now that he is home as well. They have been covering with a dry dressing. He reports that his PCP prescribed some kind of topical ointment but they are not sure exactly what or whether this is an antimicrobial or otherwise. They have not yet received it, sounds like it may need prior authorization. He is not diabetic. He is a former smoker. His medical history is otherwise significant for tongue cancer in 2013. He currently has a PEG tube and is dependent on tube feed primarily though can take some liquids by mouth. He is on Eliquis, he has not noted any adverse bleeding. He denies any known history of peripheral arterial disease, VTE, or prior vascular surgical interventions. Subjective Subjective Patient denies any new wounds or new concerns. He denies any nausea, vomiting, fevers, chills, new or worsened drainage/redness/odor from the wound. Objective Data Objective Data Vital Signs: Vital Signs Temp Pulse Resp BP O2 Del Method 97.0 F L 70 18 133/64 H Room Air 09/22/24 14:19 09/22/24 14:19 09/22/24 14:19 09/22/24 14:19 09/22/24 14:19 Oxygen Delivery Method Room Air Weight: 133 lb Body Mass Index (BMI) 18.0 Charges/Coding Procedures Integumentary 111xxx-113xx: 20952 Masha subq tissue 20 sq cm/< Physical Exam Const alert, oriented x3 and no apparent distress General Appearance: cooperative and comfortable HEENT head/scalp atraumatic, hearing grossly normal bilaterally, external ears normal and external nose normal Eyes General Eye: normal appearance of both eyes Resp normal respiratory effort, no retractions and no use of accessory muscles Effort and Inspection: able to speak in complete sentences Cardio regular rate Extremity no clubbing, cyanosis or edema Peripheral Pulses: Yes pulses 2+ throughout Skin Wounds: wounds noted Wound Narrative: Left heel stage II pressure ulceration, relatively superficial with pink wound base and minimal slough. There is no surrounding erythema, focal swelling, foul odor, significant drainage. Associated callus around the wound edges, continues to improve in size. Neuro oriented x3, moves all extremities and no focal motor deficits Speech: speech normal Psych mental status grossly normal Attitude: calm and engaged Activity / Motor Behavior: appropriate eye contact Speech: normal speech Debridement Note Debridement Note Wound debrided: Left heel Laterality: Left Type of Debridement: Excisional debridement Anesthesia Used: 5% Lidocaine Gel Depth: Down to and including healthy tissue and in the subcutaneous layer Percentage of wound debrided: 100 Instrument Used: 5mm curette Tissue Removed: Slough, callus, dried drainage Severity: Fat Layer Exposed Amount of bleeding with debridement: Mild Bleeding Controlled with: Pressure Patient tolerated procedure: Patient tolerated procedure well Post-Debridement Measurements and Additional Note: Post-Debridement Measurements/Treatment - Nurse 1 - General Ulcer Assessment Start: 09/08/24 14:10 Freq: Status: Active Protocol: WC.MICHEL Activity Type Activity Date Activity User E-sign Co-sign Detail Recorded Client Recorded Date Recorded By Document 09/08/24 14:10 KW [id number] 09/08/24 14:18 KW Document 09/22/24 14:19 DS [id number] 09/22/24 14:20 DS 09/08/24 09/22/24 14:10 14:19 - Today's Visit Information Type of service Follow-up Visit Follow-up Visit (Physician/MOBILE MARKETING SPECIALIST (Physician/MOBILE MARKETING SPECIALIST ) ) Arrival Mode Wheelchair Wheelchair Transfer Assistance Manual Accompanied by Patient Identification Verified (Name & Yes Yes ) Patient Requires Transmission-Based No Precautions Safety Precautions Fall Prevention Height and Weight Body Mass Index (BMI) 18.0 18.0 BMI Classification Underweight Underweight Vital Signs Temperature (97.8 F-99.1 F) 96.8 F L 97.0 F L Temperature Source Temporal Temporal Pulse Rate (60-100) 88 70 Pulse Location Monitor Monitor Respiratory Rate (12-18) 18 18 Respiratory rate source Observation Observation Oxygen Delivery Method Room Air Room Air Blood Pressure (90/60-120/80) 109/73 133/64 H Blood Pressure Mean (mm Hg) 85 87 Source Monitor Monitor Position Semi-Fowlers Semi-Fowlers Blood Pressure Location Left Arm Left Arm History Since Last Visit- (Skip if this is Patient's initial visit) Have you changed medications since your No No last visit? Any new allergies or adverse reactions No No Had a fall/change in ADL's that may No No increase risk of falls Signs or symptoms of abuse and/or No No neglect since last visit Have you been in the hospital since your No No last visit? Has dressing in place as prescribed Yes Yes Has compression in place as prescribed Yes N/A Has offloadiing in place as prescribed Yes Yes Experienced any changes in pain level or No No management Left Footwear Surgical Shoe Surgical Shoe with pressure with pressure relief insole relief insole Right Footwear Regular Shoe Regular Shoe Pain Scale: 0-10 Numeric Is Patient Pain Free? Yes Yes WC - Nurse 1 - General Ulcer Measurement Start: 09/08/24 14:10 Freq: Status: Active Protocol: Activity Type Activity Date Activity User E-sign Co-sign Detail Recorded Client Recorded Date Recorded By Document 09/08/24 14:10 KW [id number] 09/08/24 14:18 KW Document 09/22/24 14:20 DS [id number] 09/22/24 14:29 DS 09/08/24 09/22/24 14:10 14:20 Wound Center Nurse 1 #1 LT HEEL -Current Size (cm) - Length 1 1.4 -Current Size (cm) - Width 0.7 1.1 -Current Size (cm) - Depth 0.1 0.1 -Total Square Cm 0.7 1.54 -Date of Last Picture (Recall this 09/08/24 field) -Photo Taken No -Tunneling No -Undermining/Tunneling No -Circular Undermining No -Exudate Amt Small -Exudate Type Serosanguineous -Wound Margin Distinct, Distinct, Outline Outline Attached Attached -Granulation Amt Large (67-100%) Small (1-33%) -Granulation Quality [place] -Necrosis Amt Small (1-33%) Medium (34-66%) -Necrotic Tissue Type Adherent Slough Adherent Slough -Texture (Zita-wound Skin Appearance) Assessed Assessed,Callus -Moisture (Zita-wound Skin Appearance) Assessed, Assessed Maceration,Dry/ Scaly -Color (Zita-wound Skin Appearance) Assessed Assessed -Temperature (Zita-wound Skin No Abnormality No Abnormality Appearance) (Pt Warm) (Pt Warm) -Tenderness on Palpation (Zita-wound No Skin Appearance) -Ulcer Cleansing Rinsed/ Soap and Water Irrigated with Saline -Foul Odor after Cleansing No -Anesthetic Used 5% Lidocaine 5% Lidocaine Gel Gel WC - Nurse 2 - General Ulcer CM Notes Start: 09/08/24 14:10 Freq: Status: Active Protocol: Activity Type Activity Date Activity User E-sign Co-sign Detail Recorded Client Recorded Date Recorded By Document 09/08/24 14:23 [id number] 09/08/24 14:28 Document 09/22/24 15:02 [id number] 09/22/24 15:07 09/08/24 09/22/24 14:23 15:02 Wound Center Nurse 2 #1 LT HEEL -Time 14:23 15:02 -Correct Patient Yes Yes -Correct Side, Site, Position Yes Yes -Correct Procedure Yes Yes -Procedure Performed Yes Yes -Type of Procedure Debridement Debridement -Clinical Debridement Subcutaneous Subcutaneous -Tissue Removed Subcutaneous Subcutaneous -Post Debridement (cm) - Length 1.1 0.6 -Post Debridement (cm) - Width 0.9 0.9 -Post Debridement (cm) - Depth 0.1 0.1 -Total Square (Post) (cm) 0.99 0.54 -Area of Debridement (cm) - Length 1.1 0.6 -Area of Debridement (cm) - Width 1.9 0.9 -Total Square (Area) (cm) 2.09 0.54 -Tunneling No No -Undermining/Tunneling No No -Circular Undermining No No -Wound/Ulcer Outcome Not Healed Not Healed -Ulcer Cleansing Rinsed/ Rinsed/ Irrigated with Irrigated with Saline Saline -Foul Odor after Cleansing No No -Bioengineered Tissue No No -Bleeding Controlled with Pressure Pressure -Treatment Response Procedure Procedure Tolerated Well Tolerated Well -Debridement - Subq, 1st 20sq cm Yes Yes Pain Scale: 0-10 Numeric Is Patient Pain Free? Yes Yes RHODA - Nurse 3 - General Ulcer D/C NN Start: 09/08/24 14:10 Freq: Status: Active Protocol: Activity Type Activity Date Activity User E-sign Co-sign Detail Recorded Client Recorded Date Recorded By Document 09/08/24 14:38 [facility] [id number] 09/08/24 14:39 [facility] 09/08/24 14:38 Wound Care Center Nurse 3 #1 LT HEEL -Ulcer Cleansing Rinsed/ Irrigated with Saline -Foul Odor after Cleansing No -Primary Dressing Applied Promogran Milla Matter -Other Dressing heel hat -Primary Dressing Covered/Secured with Dry Gauze & Roll Gauze, Secured with Tape -Promogran Milla Matter 2 Treatment Response Procedure Tolerated Well Pain Scale: 0-10 Numeric Is Patient Pain Free? Yes WC - Visit Discharge Discharge Condition Stable Ambulatory Status Wheelchair Transportation Private Auto Accompanied by Assessment/Plan Assessment/Plan (1) Pressure ulcer of left heel, stage 2: CODE(S): L89.622 - Pressure ulcer of left heel, stage 2 PLAN: Plan Wound again improved in size this week. No signs/symptoms of infection. For wound care, continue washing the foot with antibacterial soap and water and patting to dry then apply lightly moistened Milla followed by fluffy dry dressing/nurses hat. Change dressings at least once daily, more often as needed if they become soiled or soaked. He is instructed not to submerge or soak his foot as this could encourage infection. We discussed the importance of offloading pressure to this area. I advised that he float his heel as much as possible, particularly when sleeping. I will see him back in 2 weeks.
== END 2024-09-27 23:59 | disposition home or self-care (01) ==
LOC: WC 14:15
PROVIDERS: PCP Family Medicine; Referring Provider Family Medicine; Visit Provider Physician Assistant
DX: L89.622 Pressure ulcer of left heel, stage 2 (principal); Z93.1 Gastrostomy status; Z87.891 Personal history of nicotine dependence
CPT/HCPCS: 11042

== ENCOUNTER 2024-10-06 14:24 | Outpatient (RCR) | payer OTHER, SELFPAY ==
[2024-09-28 00:26] VITALS: BP 135/77; PULSE 77; RESP 18; TEMP 36.2; BMI 18.0
[2024-10-06 14:07] VITALS: BP 109/54; PULSE 79; RESP 16; TEMP 35.9; BMI 18.0
--- NOTE | 2024-10-06 15:05 | PCM.WC.PN ---
History of Present Illness Date of Service: 10/06/24 Chief Complaint: Left heel pressure ulceration History of Wound: Mr. Franco Gimenez is a 59-year-old male who presents to the wound center today for ongoing evaluation and management of a left heel pressure ulceration. He is accompanied to his appointment today by his who helps with his care. He has been recently discharged from the TCU where he was recovering from a prolonged hospitalization at [facility] during which he initially developed this heel ulceration. He also has a hospital bed now at home. He reports that he does have foam offloading boots but does not feel like they really help. He does try to be more mobile now that he is home as well. They have been covering with a dry dressing. He reports that his PCP prescribed some kind of topical ointment but they are not sure exactly what or whether this is an antimicrobial or otherwise. They have not yet received it, sounds like it may need prior authorization. He is not diabetic. He is a former smoker. His medical history is otherwise significant for tongue cancer in 2013. He currently has a PEG tube and is dependent on tube feed primarily though can take some liquids by mouth. He is on Eliquis, he has not noted any adverse bleeding. He denies any known history of peripheral arterial disease, VTE, or prior vascular surgical interventions. Subjective Subjective Franco returns today with his . They report no new concerns. Objective Data Objective Data Vital Signs: Vital Signs Temp Pulse Resp BP O2 Del Method 96.7 F L 79 16 109/54 L Room Air 10/06/24 14:07 10/06/24 14:07 10/06/24 14:07 10/06/24 14:07 10/06/24 14:07 Oxygen Delivery Method Room Air Weight: 133 lb Body Mass Index (BMI) 18.0 Charges/Coding Visit Charges Office Visits / Consults: 17275 OV L3 Est 20min Physical Exam Const alert, oriented x3 and no apparent distress General Appearance: cooperative and comfortable HEENT head/scalp atraumatic, hearing grossly normal bilaterally, external ears normal and external nose normal Eyes General Eye: normal appearance of both eyes Resp normal respiratory effort, no retractions and no use of accessory muscles Effort and Inspection: able to speak in complete sentences Cardio regular rate Extremity no clubbing, cyanosis or edema Peripheral Pulses: Yes pulses 2+ throughout Skin Wounds: wounds noted Wound Narrative: Left heel stage II pressure ulceration is now epithelialized today. There was overlying adherent dried drainage which I debrided as gently as possible, though a very small area of the delicate newly healed tissue did tear with minimal bleeding associated; otherwise no open areas remain. There is no surrounding erythema, focal swelling, foul odor, significant drainage. Neuro oriented x3, moves all extremities and no focal motor deficits Speech: speech normal Psych mental status grossly normal Attitude: calm and engaged Activity / Motor Behavior: appropriate eye contact Speech: normal speech Debridement Note Debridement Note Wound debrided: Left heel Laterality: Left Type of Debridement: Selective debridement (debridement epidermis only) Anesthesia Used: 5% Lidocaine Gel Depth: Down to and including healthy tissue (selective, epidermal debridement) Instrument Used: 5mm curette Tissue Removed: Dried drainage Amount of bleeding with debridement: None Patient tolerated procedure: Patient tolerated procedure well Post-Debridement Measurements and Additional Note: Post-Debridement Measurements/Treatment - Nurse 1 - General Ulcer Assessment Start: 10/06/24 14:07 Freq: Status: Active Protocol: KATHERINE Activity Type Activity Date Activity User E-sign Co-sign Detail Recorded Client Recorded Date Recorded By Document 10/06/24 14:07 [id number] 10/06/24 14:11 KW 10/06/24 14:07 - Today's Visit Information Type of service Follow-up Visit (Physician/SUPERVISOR [employer] ) Arrival Mode Wheelchair Accompanied by Patient Identification Verified (Name & Yes ) Height and Weight Body Mass Index (BMI) 18.0 BMI Classification Underweight Vital Signs Temperature (97.8 F-99.1 F) 96.7 F L Temperature Source Temporal Pulse Rate (60-100) 79 Pulse Location Monitor Respiratory Rate (12-18) 16 Respiratory rate source Observation Oxygen Delivery Method Room Air Blood Pressure (90/60-120/80) 109/54 L Blood Pressure Mean (mm Hg) 72 Source Monitor Position Semi-Fowlers Blood Pressure Location Left Arm History Since Last Visit- (Skip if this is Patient's initial visit) Have you changed medications since your No last visit? Any new allergies or adverse reactions No Had a fall/change in ADL's that may No increase risk of falls Signs or symptoms of abuse and/or No neglect since last visit Have you been in the hospital since your No last visit? Has dressing in place as prescribed Yes Has compression in place as prescribed Yes Has offloadiing in place as prescribed Yes Experienced any changes in pain level or No management Left Footwear Surgical Shoe with pressure relief insole Right Footwear Regular Shoe Pain Scale: 0-10 Numeric Is Patient Pain Free? Yes RHODA - Nurse 1 - General Ulcer Measurement Start: 10/06/24 14:07 Freq: Status: Active Protocol: Activity Type Activity Date Activity User E-sign Co-sign Detail Recorded Client Recorded Date Recorded By Document 10/06/24 14:07 [id number] 10/06/24 14:11 10/06/24 14:07 Wound Center Nurse 1 #1 LT HEEL -Current Size (cm) - Length 0.1 -Current Size (cm) - Width 0.1 -Current Size (cm) - Depth 0 -Total Square Cm 0.01 -Date of Last Picture (Recall this 10/06/24 field) -Exudate Amt None Present -Wound Margin Distinct, Outline Attached -Necrosis Amt Large (67-100%) -Necrotic Tissue Type Adherent Slough -Texture (Zita-wound Skin Appearance) Assessed -Moisture (Zita-wound Skin Appearance) Assessed -Color (Zita-wound Skin Appearance) Assessed -Tenderness on Palpation (Zita-wound No Skin Appearance) -Ulcer Cleansing Rinsed/ Irrigated with Saline -Foul Odor after Cleansing No -Anesthetic Used 5% Lidocaine Gel RHODA - Nurse 2 - General Ulcer CM Notes Start: 10/06/24 14:07 Freq: Status: Active Protocol: Activity Type Activity Date Activity User E-sign Co-sign Detail Recorded Client Recorded Date Recorded By Document 10/06/24 14:25 [id number] 10/06/24 14:26 10/06/24 14:25 Wound Center Nurse 2 -Time 14:26 -Correct Patient Yes -Correct Side, Site, Position Yes -Correct Procedure Yes -Procedure Performed Yes -Type of Procedure Debridement -Clinical Debridement Epidermis / Dermis -Tissue Removed Epidermis -Tunneling No -Undermining/Tunneling No -Circular Undermining No -Wound/Ulcer Outcome Healed- Epithelialized -Ulcer Cleansing Not Cleansed -Foul Odor after Cleansing No -Bleeding Controlled with NA -Debridement - Open, 1st 20sq cm Yes Pain Scale: 0-10 Numeric Is Patient Pain Free? Yes RHODA - Nurse 3 - General Ulcer D/C NN Start: 10/06/24 14:07 Freq: Status: Active Protocol: Activity Type Activity Date Activity User E-sign Co-sign Detail Recorded Client Recorded Date Recorded By Document 10/06/24 14:31 DL [id number] 10/06/24 14:32 DL 10/06/24 14:31 Wound Care Center Nurse 3 #1 LT HEEL -Ulcer Cleansing Rinsed/ Irrigated with Saline -Foul Odor after Cleansing No -Primary Dressing Applied C Hydrogel ($) -Other Dressing fluffed gauze, heel hat -Primary Dressing Covered/Secured with Dry Gauze & Roll Gauze, Secured with Tape Treatment Response Procedure Tolerated Well Pain Scale: 0-10 Numeric Is Patient Pain Free? Yes WC - Visit Discharge Discharge Condition Stable Ambulatory Status Wheelchair Transportation Private Auto Accompanied by Facility Type Home Health Assessment/Plan Assessment/Plan (1) Pressure ulcer of left heel, stage 2: CODE(S): L89.622 - Pressure ulcer of left heel, stage 2 PLAN: Plan His wound is epithelialized today. There is a very small tear from removing the overlying dried drainage today -- due to this will apply collagen hydrogel and dressing which I have instructed he leave in place and keep clean and dry for the next 2 days. After 2 days, may remove. As long as there is no open area/bleeding then okay to leave open to air. Would adivse padding this area still with any ambulation. Continue to offload pressure at rest to reduce risk for recurrence. At this time, he is discharged from the wound healing center and will return as needed.
--- NOTE | 2024-10-11 09:52 | WC ---
PHOTO 10/06/24 LEFT HEEL
== END 2024-10-26 13:14 | disposition home or self-care (01) ==
LOC: WC 14:24
PROVIDERS: PCP Family Medicine; Referring Provider Family Medicine; Visit Provider Physician Assistant
DX: L89.622 Pressure ulcer of left heel, stage 2 (principal); Z93.1 Gastrostomy status; Z87.891 Personal history of nicotine dependence
CPT/HCPCS: 97597